=== PATIENT | female | born 1965 | race Caucasian/White ===

== ENCOUNTER 2021-12-16 02:13 | Outpatient (CLI) | payer OTHER, SELFPAY ==
--- OUTSIDE RECORDS SUMMARY | 2021-12-16 02:15 | XMS_ITS | Encounter Summary ---
:1965 Author Organization [facility] [place] [address] Care Team Providers Name Role Phone Unknown Primary Care Provider Unavailable Reason for Visit Reason Comments Follow-up Encounter Details Date Type Department Care Team Description 09/04/2011 Office Visit [facility] Joaquin Paz, Atypical lymphocytosis [address] [facility] Davy VELAZQUEZ (Primary Dx) [address] [address] [place], [place] [phone] [id number] Social History Tobacco Use Types Packs/Day Years Used Date Never Smoker Sex Assigned at Date Recorded Not on file documented as of this encounter Last Filed Vital Signs Vital Sign Reading Time Taken Comments Blood Pressure 110/66 09/04/2011 1:09 PM EDT Pulse 77 09/04/2011 1:09 PM EDT Temperature 36.4 ??C (97.5 ??F) 09/04/2011 1:09 PM EDT Respiratory Rate 14 09/04/2011 1:09 PM EDT Oxygen Saturation 98% 09/04/2011 1:09 PM EDT Inhaled Oxygen Concentration - - Weight 51.8 kg (114 lb 3.2 oz) 09/04/2011 1:09 PM EDT Height 148.6 cm (4' 10.5) 09/04/2011 1:09 PM EDT Body Mass Index 23.46 09/04/2011 1:09 PM EDT documented in this encounter Progress Notes Joaquin Paz MD - 09/04/2011 1:29 PM EDT Diagnosis: A few atypical lymphocytes seen on peripheral smear. Patient also with occasional slight increase inbilirubin raising possibility of Gilbert's syndrome Subjective: Savanna comes in today for medical oncology and hematology consultation regarding some subtle finding she's had on blood testing. She has had a slightly low white count ranging between 3.5 and 4.5 over the past couple years with a very subtle macrocytosis. More recently however a notation was made of some atypical lymphocytes. Additionally it is been noticed on occasion that her bilirubin would be slightly increased although it was also normal on occasion. All of her other liver testing however was completely normal. In reviewing her laboratory her most recent CBC done last month showed a white count of 4.0 hemoglobin 13.2 and platelet count of 178 differential showed 42% segs 0% bands 29% lymphocytes with 7% atypical lymphs noted. Her mean cell volume on this sample was slightly increased at 102.8.CMP showed a bilirubin of 1.7 with all other liver tests normal. Previously the patient has had a more extensive liver panel which is also normal except for a load GGTP. B12 was done and was normal at 404 folate of greater than 20.additionally the patient had a negative serum protein electrophoresis and iron levels B12 and folate were all normal. Reticulocyte count was low at 1.1 and thyroid studies were normal. The patient feels well with no symptoms or problems. 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 Her is clinical genetics laboratory chief here in [facility]. Family history is negative for any kind of blood disorder or cancer. She does have a identical twins sister and believes she may have the same laboratory problems. Review of Systems Constitutional: Negative for fever, chills, activity change, fatigue and unexpected weight change. HENT: Negative for sore throat, mouth sores and trouble swallowing. Eyes: Negative. Respiratory: Negative for cough, shortness of breath and wheezing. Cardiovascular: Negative for chest pain, palpitations and leg swelling. Gastrointestinal: Negative for nausea, vomiting, abdominal pain, diarrhea, constipation and abdominal distention. Genitourinary: Negative for dysuria and difficulty urinating. Musculoskeletal: Negative. Skin: Negative. Neurological: Negative. Hematological: Negative for adenopathy. Head: Normocephalic, without obvious abnormality, atraumatic Eyes: PERRL, conjunctiva/corneas clear, EOM's intact, fundi benign, both eyes Ears: Normal TM's and external ear canals, both ears Nose: Nares normal, septum midline, mucosa normal, no drainage or sinus tenderness Throat: Lips, mucosa, and tongue normal; teeth and gums normal Neck: Supple, symmetrical, trachea midline, no adenopathy, thyroid: not enlarged, symmetric, no tenderness/mass/nodules, no carotid bruit or JVD Back: Symmetric, no curvature, ROM normal, no CVA tenderness Lungs: Clear to auscultation bilaterally, respirations unlabored Chest Wall: No tenderness or deformity Heart: Regular rate and rhythm, S1, S2 normal, no murmur, rub or gallop Abdomen: Soft, non-tender, bowel sounds active all four quadrants, no masses, no organomegaly Extremities: Extremities normal, atraumatic, no cyanosis or edema Pulses: 2+ and symmetric Skin: Skin color, texture, turgor normal, no rashes or lesions Lymph nodes: Cervical, supraclavicular, and axillary nodes normal Neurologic: Normal Assessment/Plan: And has some subtle nonspecific findings on her laboratory testing. As far as the increased bilirubin goes I do think she may have Gilbert's syndrome as it has been up a time subtly and down other times. That coupled with the fact that she does not have any other liver abnormalities makes this a likely diagnosis. I was happy to see that we have ruled out the possibility of an underlying hemolytic anemia which would possibly increased bilirubin and a mean cell volume slightly by checking a reticulocyte count. With it in the normal range there is no chance that she is having hemolysis as an etiology. As far as her CBCs ago she does have a slight increase in mean cell volume which is not explained bymedication or any deficiencies. I don't believe there are any other studies however that could be done to help distinguish a reason for this. Since some atypical lymphocytes were seen on peripheral smear would seem reasonable to try and see if these are pathologic. A flow cytometry should help sort this out. If she does not have a clonal abnormality then I think no further evaluation would be required. As always 1 would like to speculate that this could be post viral. With the patient however being asymptomatic at this point one would simply continue to follow her. We've went ahead and ordered a flow cytometry today and we'll see her back following that. No further recommendations are made other than routine followup at this time. documented in this encounter Plan of Treatment Not on filedocumented as of this encounter Visit Diagnoses Diagnosis Atypical lymphocytosis - Primary Lymphocytosis (symptomatic) documented in this encounter Care Teams Conveyor Monitor Relationship Specialty Start Date End Date Unknown PCP - General 09/04/11 08/29/12 None documented as of this encounter
--- OUTSIDE RECORDS SUMMARY | 2021-12-16 02:15 | XMS_ITS | Encounter Summary ---
:1965 Author Organization [facility] Address [address] [place] [address] Care Team Providers Name Role Phone Unavailable Primary Care Provider Unavailable Encounter Details Date Type Department Care Team Description 06/04/2007 Results Only [facility] - John Chance MD conversion [address] [place] [address] Social History Tobacco Use Types Packs/Day Years Used Date Never Assessed Sex Assigned at Date Recorded Female 04/04/2021 10:49 EST documented as of this encounter Plan of Treatment Not on filedocumented as of this encounter Procedures Procedure Name Priority Date/Time Associated Comments Diagnosis HPV DETECTION, HIGH Routine 06/04/2007 8:29 Resul ts for this RISK TYPES EDT procedure are i n the results section. CYTOPATHOLOGY Routine 06/04/2007 0:00 Results for this EDT procedure are i n the results section. documented in this encounter Results HUMAN PAPILLOMA VIRUS DNA TEST (06/04/2007 8:29 EDT) Specimen Description Cervix, ThinPrep [facility] vial Result Negative for HPV [facility] types 16, 18, 31, 33, 35, 39, 45, 51, 52, 56, 58, 59, and 68. Report Status Final [facility] [id number] Specimen Performing Organization Address City/State/ZIP Code Phon e Number [facility] [address] [place] [address] SERVICES [facility] [address] [place] [address] CYTOPATHOLOGY (06/04/2007 0:00 EDT) Pathology Report: CYTOPATHOLOGY REPORT [facility] Reports generated via electronic interface contain zara ginal data; however they are lacking the format of the original re port. Caution should be taken when reading/interpreting unfo rmatted reports. Name: ? SAVANNA BAL ? Accession #: ? [id number] : ? 1965 (Age: 42) ??F ?Collect Date: ? 03/2007 Location: ? [facility] ? Receive Date : ? 06/06/2007 Provider: ?JOHN BERNARD MD Copy to: ? Specimen/Source: ? ThinPrep Pap Test, Cervix/Endocervix, processed on [employer] ThinPrep Imaging System, with manual evaluation Last Menstrual Period: ? 05/29/07 Other: ? HPVDX - HPV testing requested regardless of diag nosis on current ThinPrep Pap test. ? SPECIMEN ADEQUACY ? Satisfactory for Evaluation - transformation zone component present GENERAL CATEGORIZATION ? Other, see interpretation INTERPRETATION ? Endometrial cells present in a woman equal to o r greater than age 40. Negative for Intraepithelial Lesion. EDUCATIONAL NOTES/RECOMMENDATIONS ? Benign appearing endometrial cells on Pap tests are usually a normal finding in women with regular menstrual cycles, especially if the Pap test was collected during the first half of the menstrual cycle . There is data showing that e ndometrial cells on Pap tests may be associated with endometrial/uterine abnormal ities in post menopausal women or in perimenopausal women with abnormal bleeding. There is limited data on the significance of calli ign endometrial cells in post menopausal women on HRT. ??Clinical correlation is rec ommended. Note: ??The Pap test is not an accurate test for the screening of endometrial lesions and should not be used as a follow up in patie nts with clinical suspicion of endometrial pathology. ? Document reviewed and electronically signed by: ? CIRA Reis(ASCP) ? Report Date: ??06/12/2007 08:16 End of Report Specimen Performing Organization Address City/State/ZIP Code Phon e Number [facility] [address] [place] [address] SERVICES [facility] [address] [place] [address] documented in this encounter Visit Diagnoses Not on filedocumented in this encounter
--- OUTSIDE RECORDS SUMMARY | 2021-12-16 02:15 | XMS_ITS | Encounter Summary ---
:1965 Author Organization [facility] Address [address] [place] [id number] Care Team Providers Name Role Phone Unavailable Primary Care Provider Unavailable Encounter Details Date Type Department Care Team Description 11/23/2010 Results Only [facility] Munir Bernard am, MD Services - Liane All en [address] [address] Social History Tobacco Use Types Packs/Day Years Used Date Never Assessed Sex Assigned at Date Recorded Female 04/04/2021 10:49 EST documented as of this encounter Plan of Treatment Not on filedocumented as of this encounter Procedures Procedure Name Priority Date/Time Associated Diagnosis Comme nts PAP TEST- RESULT Routine 11/24/2010 0:00 EDT Resu lts for this ONLY procedure are i n the results section. documented in this encounter Results PAP TEST- RESULT ONLY (11/24/2010 0:00 EDT) Pathology Report: CYTOPATHOLOGY REPORT ? [facility] ? LAB Reports generated via [employer] interface contain original data; ? however they are lacking the format of the original report. ? Caution should be taken when reading/interpreting unformatted reports. ? Name: ? VALERIANO BRYANNA Pio L ? Accession #: ? [id number] ? : ? 1965 (Age: 45) ??F ?Collect Date: ? 11/24/2010 ? Location: ? [facility] ? R eceive Date: ? 11/25/2010 ? Provider: ENEIDA B BERNARD MD ? Copy to: ? Final Report ? SPECIMEN ADEQUACY ? Satisfactory for Eval uation ? - transformation zone compon ent present ? GENERAL CATEGORIZATION ? Negative for Intraepi thelial Lesion or Malignancy ? Other: Additional clinical i nformation: previous paps WNL 3/, 06/10 ? Specimen/Source: ??Pap Test, Cervix/Endocervix, ThinPrep Imaging System with ? manual evaluation ? Document reviewed and electr onically signed by: ? Brittney Deysi, CT( CP) ? Report ??Date: 12/01/ 2010 10:54 ? HPV with Pap Test ? Date Ordered: ? 0 12/01/2010 ? Status: ?? Signed Out ?Date Complete: ? 12/05/2010 ? By: ??System Interface ? Date Reported: ? 12/05/2010 ? Interpretation ? RESULT: Negative for HPV typ es 16, 18, 31, 33, 35, 39, 45, 51, 52, ? 56, 58, 59, and 68. ? Comments ? Document reviewed and electr onically signed by: ? System Interface ? Report date: 12/06/19 11 ? By the signature above, the attending physician certifies that he/she has ? personally conducted a gross and/or microscopic examination of the described ? specimens and rendered or co nfirmed the above diagnosis. ? End of Report ? Specimen Performing Organization Address City/State/ZIP Code Phon e Number [facility] [address] [place] [address] SERVICES [facility] [address] [place] [address] documented in this encounter Visit Diagnoses Not on filedocumented in this encounter
--- OUTSIDE RECORDS SUMMARY | 2021-12-16 02:15 | XMS_ITS | Encounter Summary ---
:[address] [facility] Address [address] [place] [address] Care Team Providers Name Role Phone Shy Matamoros MD Primary Care Provider Encounter Details Date Type Department Care Team Description 03/16/2021 Lab Requisition [facility] Shahbaz Fitzgerald MD Encounter for other Pathology & [address] MEDICAL [facility] Medicine [facility] [address] Osorio [address] [address] [address] [facility] [phone] [place] [address] (Work) [phone] Social History Tobacco Use Types Packs/Day Years Used Date Never Assessed Sex Assigned at Date Recorded Female 04/04/2021 10:49 EST documented as of this encounter Plan of Treatment Not on filedocumented as of this encounter Procedures Procedure Name Priority Date/Time Associated Diagnosis Comme nts SURGICAL PATHOLOGY Today 03/16/2021 11:28 Resul ts for this EST procedure are i n the results section. documented in this encounter Results SURGICAL PATHOLOGY (03/16/2021 11:28 EST) Note to Patient The following [facility] pathology results CENTER have been interpreted LABORATORY by your pathologist SERVICES and may be available to you before your health provider has had the opportunity to review them. Please allow time for your provider to receive these results and explore management options, if applicable. Final Diagnosis A. ENDOMETRIUM, POLYP, POLYPECTOMY: [facility] - Features suggestive of benign endometrial polyp. CENTER LABORATORY B. ENDOMETRIUM, CURETTAGE: SERVICES - Fragments of benign endometrial glands and stroma. C. OVARY AND FALLOPIAN TUBE, LEFT, SALPINGO-OOPHORECTO MY: - Ovary with leiomyoma, 1.3 cm in greatest dimension. - Fallopian tube with no specific pathologic features. Attestation There was significant [facility] Electr onically resident/fellow CENTER signed by Maulik castellano, involvement in the LABORATORY Jackelyn Yoo MD on diagnostic evaluation SERVICES 022 at 1105 of this case. By the signature below, the attending physician certifies that they have personally conducted a gross and/or microscopic examination of the described specimens and rendered or confirmed the above diagnosis. Clinical History Thickened [facility] endometrium, [facility] endometrial cavity, L LABORATORY ovarian cyst SERVICES Gross Description A. [facility] Received in formalin donato d with proper patient identification (initials B, A) and polyp are several fragments of rubbery rodriguez purple tissue measuring 3.0 x 2.0 x 0.7 cm in aggregate. Tissue is entirely submitted as A1 and A2. CENTER LABORATORY B. SERVICES Received in formalin donato d with proper patient identification (initials B, A) and endometrium curettings is an aggregate of dark purple rubbery with admixed mucous (0.5 x 0.5 x 0.3 cm). Entirely submitted in B1. C. Received fresh labelled with proper patient identification (initials B, A) and left ovary and tube is a solid ovarian tumor (3.8 g, 1.3 cm in diameter) with attached fallopian tube (4.0 cm in length x 0.6 cm in diameter). The ovarian tumor is intact and has a smooth outer surface without excrescences. Sectioning reveals a well-circumscribed nodular mass with rodriguez- white and whorled cut surface. Residual normal ovarian tissue is identified. The serosa of the fallopian tube is smooth and rodriguez purple and the cut surface is rodriguez-white an unremarkable with a pinpoint lumen throughout. Drag Out Man sections are submitted as follows: BLOCK DOWLING C1-C3- entire ovarian mass C4- uninvolved ovary with fallopian tube cross-section C5- possible fimbriated end of fallopian tube, perpend icular Janel Porras MD 03/17/2021 15:54 Resident/Fellow: Janel Porras MD [facility] SERVICES Performing Lab [facility] Scanned Images [facility] SERVICES Specimen Tissue - Fallopian tube and ovary (combi zayda site) (body structure) Tissue specimen (specimen) - Entire endo metrium (body structure) Tissue specimen (specimen) - Fallopian t ube and ovary (combined site) (body structure) Performing Organization Address City/State/ZIP Code Phon e Number [facility] [address] [place] [address] SERVICES documented in this encounter Visit Diagnoses Diagnosis Encounter for other general examination documented in this encounter Care Teams Statuary Painter Relationship Specialty Start Date End Date Shy Matamoros MD PCP - General 09/05/[address] [place] [address] documented as of this encounter
--- OUTSIDE RECORDS SUMMARY | 2021-12-16 02:15 | XMS_ITS | Encounter Summary ---
:1965 Author Organization [facility] [place] [address] Care Team Providers Name Role Phone Jeremias Gates MD Primary Care Provider Reason for Visit Reason Comments Follow-up Encounter Details Date Type Department Care Team Description 10/14/2012 Office Visit Hematology and Sebastian Gross al lymphocytosis (Primary Dx); Oncology at [facility] MD Fredo Leukopenia; [facility] [address] [place], [place] HEMATOLOGY/ONCOLOGY [id number] DEPT. [phone] [place], [place] [address] (Wo rk) Social History Tobacco Use Types Packs/Day Years Used Date Never Smoker Sex Assigned at Date Recorded Not on file documented as of this encounter Last Filed Vital Signs Vital Sign Reading Time Taken Comments Blood Pressure 126/72 10/14/2012 9:34 AM EDT Pulse 70 10/14/2012 9:34 AM EDT Temperature 36.8 ??C (98.2 ??F) 10/14/2012 9:34 AM EDT Respiratory Rate 18 10/14/2012 9:34 AM EDT Oxygen Saturation 100% 10/14/2012 9:34 AM EDT Inhaled Oxygen Concentration - - Weight 52.7 kg (116 lb 2.9 oz) 10/14/2012 9:34 AM EDT Height 147.6 cm (4' 10.11) 10/14/2012 9:34 AM EDT Body Mass Index 24.19 10/14/2012 9:34 AM EDT documented in this encounter Progress Notes Sebastian Gross MD - 10/14/2012 11:00 AM EDT HEMATOLOGY/BMT CONSULTATION VISIT NOTE CHIEF COMPLAINT: Romelia Hussein is a 47 y.o. year old female referred by JEREMIAS GATES MD for evaluation of . DATA REVIEW (From JEREMIAS GATES MD) 07/09/12 CBC - 4.0/13.3/178 MCV 102.8 7% arypical lymphs, individual absolute counts all WNL 08/13/12 CBC - 4.0/13.7/172 MCV 104 0% atypical lymphs, individual absolute counts all WNL 08/30/12 PB Flow cytometry (from [facility]) Abberrant T-cell population...18% of lymphocytes...CD6, CD7, CD2, CD5 POS and CD3 NEG HISTORY OF PRESENT ILLNESS Romelia Hussein dates the onset of illness to 4 years ago when Romelia went to her PCP for a wart, while there he suggested that she have a routine CBC. This showed a low WBC. At times she has had a mildanmeia that comes and goes. She thinks she had tests for iron and B12 that were normal. I never getsick, she says. Hasn't needed antibiotics for ~10 years - the last time was after the of one of her children. She thinks her sister has a similar low WBC that is chronic and has never been treated. No enlarged of tender lymph nodes. No F/C/S. Weight is stable. Energy is good - able to do all she wants to do and is quite active. Has 3 children 15, 10 and 13. 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 No issue in keeping up with her children. Has never worked with chemicals or radiation or been exposed to them. REVIEW OF SYSTEMS Constitutional --Energy level: good --Pain: none --Fevers/chills/sweats: No --Unexpected weight loss or gain: No Eyes - No change in vision Ears, nose, throat - No change hearing, no oral or throat pain or thrush Cardiovascular --SOB: No --TROY: No --chest pain: No Respiratory --Cough: No --SOB, TROY: as above Gastrointestinal --Appetite: good --Nausea/vomiting/diarrhea/constipation: No Genitourinary --Dysuria or hematuria: No Musculoskeletal --Muscle pain or weakness: No --Joint pain or swelling: No Immune System --Recent infections: No Hematology/Lymph --Bruising/bleeding/melena: No --Enlarged nodes or other masses: No Skin --Rashes or petechiae: No Other ROS: All negative PROBLEM LIST Patient Active Problem List Diagnosis Date Noted ??? Atypical lymphocytosis ??? Gilbert syndrome MEDICATIONS Prior to Admission medications Medication Sig Start Date End Date Taking? Authorizing Provider ibuprofen (ADVIL;MOTRIN) 800 mg tablet Take 200 mg by mouth every 6 hours as needed. Indications: Osteoarthritis Yes Provider, Historical, ALLERGIES/ADR Allergies Allergen Reactions ??? Percocet (Oxycodone-Acetaminophen) Palpitations ??? Tetracycline Nausea Only SOCIAL HISTORY History Substance Use Topics ??? Smoking status: Never Smoker ??? Smokeless tobacco: Not on file ??? Alcohol Use: ETOH - 1 drink or less per week. 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 No exposures to chemicals or radiation FAMILY HISTORY Father - at 47 of [place] Mother - at 70 of DM complications 4 brothers - one of DM complications, one with Hep C of drug abuse, another with DM 1 sister - as above PHYSICAL EXAM VITAL SIGNS: Blood pressure 126/72, pulse 70, temperature 36.8 ??C (98.2 ??F), temperature source Oral, resp. rate 18, height 147.6 cm (4' 10.11), weight 52.7 kg (116 lb 2.9 oz), SpO2 100.00%. GENERAL: Romelia Hussein is a well-appearing 47 y.o. year old female in no acute distress. ENT: Sinuses non-tender. Oropharynx clear. No masses. No thrush. ENDOCRINE: No thyromegaly palpated. CARDIOVASCULAR: Heart with regular rate and rhythm without S3,S4 or murmurs. No cyanosis or peripheral edema. PULMONARY: Lungs are clear to auscultation without rales, rhonchi or wheezing. GASTROINTESTINAL: Abdomen soft and non-tender without palpable masses or hepatosplenomegaly. MUSCULOSKELETAL: Neck supple with full ROM. No spine or CVA tenderness. SKIN: No rashes, bruises or petechiae. LYMPH: No abnormal lymphadenopathy. NEUROLOGICAL: Alert and oriented to person, place and time. LABORATORY Recent Results (from the past 72 hour(s)) CBC (WITH DIFF) Component Value Range WBC 3.4 (*) 4.0 - 10.0 x10(3)/mcL RBC 4.03 3.93 - 5.22 x10(6)/mcL Hemoglobin 13.6 11.2 - 15.7 gm/dL Hematocrit 41.6 34.0 - 45.0 % MCV 103.2 (*) 79.0 - 94.0 fL MCH 33.7 (*) 26.6 - 32.2 pg MCHC 32.7 32.0 - 36.5 gm/dL Platelets 212 145 - 370 x10(3)/mcL RDWSD 50.4 (*) 35.0 - 46.0 fL RDWCV 13.3 10.9 - 14.4 % MPV 11.1 9.0 - 12.0 fL COMPREHENSIVE METABOLIC PANEL (NON-FASTING) Component Value Range Glucose Lvl 95 60 - 199 mg/dL BUN 18 8 - 18 mg/dL Creatinine 0.64 (*) 0.70 - 1.20 mg/dL Sodium 138 135 - 145 mmol/L Potassium 3.7 3.5 - 5.0 mmol/L Chloride 101 98 - 107 mmol/L CO2 25 22 - 31 mmol/L Anion Gap 12 5 - 15 mmol/L Calcium 9.5 8.5 - 10.5 mg/dL Total Protein 7.5 6.4 - 8.3 gm/dL Albumin 4.4 3.2 - 5.2 gm/dL AST 20 0 - 30 unit/L ALT 20 0 - 30 unit/L Alk Phos 91 40 - 104 unit/L Total Bilirubin 1.2 0.2 - 1.3 mg/dL Bili, Direct 0.2 0.0 - 0.3 mg/dL Estimated GFR >60 >=60 LACTATE DEHYDROGENASE Component Value Range LDH 167 110 - 220 unit/L IMMUNOGLOBULINS, QUANTITATIVE Component Value Range IgG 1035 700 - 1600 mg/dL IgA 275 70 - 400 mg/dL IgM 174 40 - 230 mg/dL PROTEIN ELECTROPHORESIS, SERUM Component Value Range Total Prot Elec 7.3 6.1 - 8.0 gm/dL Albumin Elect 4.30 3.60 - 6.00 gm/dL Alpha1-Globulin 0.18 0.10 - 0.30 gm/dL Alpha2-Globulin 0.83 0.40 - 0.90 gm/dL Beta Globulin 0.93 0.50 - 1.00 gm/dL Gamma Globulin 1.06 0.50 - 1.30 gm/dL M1 Band None Detected None Detected gm/dL Scan See Note IMMUNOPHENOTYPING FLOW CYTOMETRY Component Value Range Type of Specimen blood Panel Requested LGL Panel Immunophenotyping Flow See Comment FERRITIN Component Value Range Ferritin 20 15 - 150 ng/mL SEDIMENTATION RATE Component Value Range Sed Rate 16 0 - 20 mm/hr IRON AND TIBC Component Value Range Iron 162 (*) 30 - 150 mcg/dL TIBC 433 250 - 450 mcg/dL Iron Saturation 37 20 - 50 % DIFFERENTIAL, AUTOMATED Component Value Range Neutrophils % 47.5 34.0 - 71.0 % Neutr Abs (ANC) 1.61 1.50 - 6.30 x10(3)/mcL Lymphocytes % 39.5 19.0 - 53.0 % Lymphocytes Abs 1.3 1.0 - 3.6 x10(3)/mcL Monocytes % 10.6 4.0 - 13.0 % Monocyte Abs 0.4 0.2 - 1.0 x10(3)/mcL Eosinophils % 1.8 0.0 - 7.0 % Eosinophils Abs 0.1 0.0 - 0.5 x10(3)/mcL Basophils % 0.6 0.0 - 2.0 % Basophils Abs 0.0 0.0 - 0.2 x10(3)/mcL Immature Gran % 0.00 0.00 - 0.66 % Anayeli Gran Abs 0.00 0.00 - 0.05 x10(3)/mcL RADIOLOGY - None ASSESSMENT & PLANS 1. Atypical lymphocytes - Flow cytometry results from [facility] suggest the possibility of a lymphoproliferative disorder but are non-diagnostic. Romelia has no symptoms or physical findings to suggest any underlying hematologic disorder including a MPD. In fact she seems to be a very healthy, active person. After discussion we agreed to begin with routine lab testing including anemia evaluation because she felt that she had had anemia in the recent past, as well as repeating the flow cytometry. It could be that the atypical signature previously noted was due to a viral infection. In support of this would be the fact that the percentage of abnormal lymphocytes in her blood declined from 7% to 0%from July to August. I will call Romelia with the results of her testing as soon as they are completed. Preferred contact number: [phone] 10/31/12 ADDENDUM Summary of peripheral blood flow cytometry: In summary, although there is a slightly expanded NK cell population, there are no immmunophenotypic T-cell abnormalities identified. Transient increases in peripheral blood NK cells may be observed in a range of reactive conditions including infections, autoimmune disorders and malignancies. In the absence of clinical evidence for an aggressive NK neoplasm, persistent (>6 months) elevations of NK cells may be consistent with chronic NK lymphocytosis, a generally indolent disorder that may be associated with cytopenias (Franco et al., Natural killer cells and the syndrome of chronic natural killer cell lymphocytosis. Leukemia and Lymphoma 2001;41:277-284). In this patient's case, however, the proportion of NK cells and absolute NK cell count (22% of lymphocytes; 0.3 x 10e9 cells/L, respectively) do not reach the threshold for a diagnosis of chronic NK lymphocytosis (40% of lymphocytes; 0.6 x10e9 cells/L). Correlation with the results of clinical and laboratory data and follow up flow cytometry evaluation after a relevant interval may help place the finding of this expanded NK cell population into the appropriate context. I reviewed the above flow results with Dr. Alexander, the hematopathologist for this case. The above analysis did not find any evidence of of the previously observed T-cell abnormalities seen in the sample sent to [facility] suggesting that this was a transient finding and not of any long-term signi ficance. As noted above there was a slight increase in NK cells in the current sample, but this small increase is non-diagnostic and also of questionable significance given that Romelia feels entirely well. Recommendation At this point I would not recommend any further hematologic evaluation and only observation of Romelia's blood counts (say every 6 months or so). Should she develop significant cytopenia's in the future or develop worrisome symptoms, I would be glad to see her any time. I called Romelia and reviewed her results and my recommendations with her. Sebastian Gross M.D. commissary representative & Pharmacology Section of Hematology/Oncology [facility] documented in this encounter Plan of Treatment Not on filedocumented as of this encounter Procedures Procedure Name Priority Date/Time Associated Comments Diagnosis IMMUNOPHENOTYPING FLOW STAT 10/14/2012 12:03 Atypical R esults for this CYTOMETRY PM EDT lymphocytosis procedure are in Leukopenia the results Anemia section. IMMUNOGLOBULINS, STAT 10/14/2012 12:03 Atypical Results for this QUANTITATIVE PM EDT lymphocytosis procedure are in Leukopenia the results Anemia section. FLOW CYTOMETRY REPORT Routine 10/14/2012 12:03 Re sults for this PM EDT procedure are i n the results section. DIFFERENTIAL, AUTOMATED Routine 10/14/2012 12:03 Results for this PM EDT procedure are i n the results section. IRON AND TIBC Routine 10/14/2012 12:03 Atypical Results fo r this PM EDT lymphocytosis procedure are in Leukopenia the results Anemia section. SEDIMENTATION RATE STAT 10/14/2012 12:03 Atypical Resul ts for this PM EDT lymphocytosis procedure are in Leukopenia the results Anemia section. CBC (WITH DIFF) Routine 10/14/2012 12:03 Atypical Results for this PM EDT lymphocytosis procedure are in Leukopenia the results Anemia section. PROTEIN ELECTROPHORESIS, Routine 10/14/2012 12:03 Atypical Results for this SERUM PM EDT lymphocytosis procedure are in Leukopenia the results Anemia section. LACTATE DEHYDROGENASE Routine 10/14/2012 12:03 Atypical Re sults for this PM EDT lymphocytosis procedure are in Leukopenia the results Anemia section. FERRITIN Routine 10/14/2012 12:03 Atypical Results for this PM EDT lymphocytosis procedure are in Leukopenia the results Anemia section. COMPREHENSIVE METABOLIC Routine 10/14/2012 12:03 Atypical Results for this PANEL (NON-FASTING) PM EDT lymphocytosi s procedure are in Leukopenia the results Anemia section. documented in this encounter Results Flow Cytometry Report (10/14/2012 12:03 PM EDT) Component Value Ref Test Analysis Performed At [facility] Range Method Time Signature Flow CERNER Cytometry ? [facility] Report ? Provider: ?? SEBASTIAN GROSS Pt. Name: ?? ROMELIA BUNCH ?H ? Acc #: ?[id number] ? Pt. ? Col Date: ?? 10/14/2012 ? /Sex: ?1 04/18/1964,(47 ? years),Female ? Rec Date: ?? 10/14/2012 ? LOC: ?3K ? ANALYTICAL CELL PATHOLOGY ? ---Clinical Information--- ? 47 yo woman with leuk openia and apparently abnormal peripheral blood flow ? cytometry performed previously. ? ---Preparation--- ? FCM: [id number] ? -[id number] ? Peripheral Blood ? ---Markers--- ? Cells for immunophenotypic analys is were derived from peripheral blood. ? CD45 vs side scatter gating was utilized to identify a lymphoid analysis ? region that comprises approximately 32% of all cells. ? The following markers were assese d: CD2, CD3, CD4, CD5, CD7, CD8, CD16, ? CD19, CD45, CD56,and CD57. ? ---Interpretation--- ? DIAGNOSIS: SMALL EXPA NDED CD3-CD56+ NK CELL POPULATION WITHOUT AN ABNORMAL ? T-CELL POPULATION ? IDENTIFIED (SEE COMMENT) ? 10/14/12 ? 10/18/12 Verified by: ? Benjamin VELAZQUEZ, Bing Degroot ? Hematopatholog ist ? (Electronic Si gnature) ? ---Comment--- ? The majority of lymph ocytes in this peripheral blood specimen are CD3+ T- ? cells (66% of lymphoc ytes; 21% of total cells) with an appropriate mixture ? of mature CD4+ and CD 8+ forms (CD4:CD8 ratio = 1.5). ??There is no aberrant ? antigen loss or expression on T-cells and no significant population of ? CD4+CD8+ (double pos itive) cells. In particular, we identify no abnormal ? CD3- CD5+ CD7+ T-cell population as was described i n a previous flow ? cytometry report from [facility] (#[id number], under scanned ? docs in eDH). There i s a slightly expanded population of CD3-CD56+ NK cells ? constituting 22% of lymphocytes ( 7% of total cells). These NK cells are ? appropriately CD2+, CD5-, CD7+ and show a range of CD8, CD16 and CD57 ? expression without aberrant antig en expression or loss. CD3+CD57+ T-LGL ? cells are not increased (15% of l ymphocytes; 7% of total cells), and B- ? cells account for 11% of lymphocytes (4% of total lily ls). ? [facility] ? Provider: ?? SEBASTIAN GROSS Pt. Name: ?? ROMELIA BUNCH ?H ? Acc #: ?[id number] ? Pt. ? Col Date: ?? 10/14/2012 ? /Sex: ?1 04/18/1964,(47 ? years),Female ? Rec Date: ?? 10/14/2012 ? LOC: ?3K ? ANALYTICAL CELL PATHOLOGY ? In summary, although there is a slightly expanded NK cell population, there ? are no immmunophenotypic T-cell abnormalities i dentified. ??Transient ? increases in peripheral blood NK cells may be obser casper in a range of ? reactive conditions including infections, autoimmune disorders and ? malignancies. In the absence of clinical evidence for an aggressive ??NK ? neoplasm, persistent (>6 months) elevations of NK cells may be consistent ? with chronic NK lymph ocytosis, a generally indolent disorder that may be ? associated with cytopenias (Rhonda ronquillo et al., Natural killer cells and the ? syndrome of chronic natural killer cell lymphocytosis . Leukemia and ? Lymphoma 2001;41:277- 284). In this patient's case, however, the proportion ? of NK cells and absolute NK cell count (2 2% of lymphocytes; 0.3 x 10e9 ? cells/L, respectively) do not reach the threshold f or a diagnosis of ? chronic NK lymphocytosis (40% of lymphocytes; 0.6 x 1 0e9 cells/L). ? Correlation with the results of clinical and laboratory data and follow up ? flow cytometry evaluation after a relevan t interval may help place the ? finding of this expan ded NK cell population into the appropriate context. ? Flow analysis is an ancillary study. A definite diagn osis requires ? correlation with the morphologic features of this process and if necessary, ? correlation with othe r ancillary studies like immunohistochemistry, enzyme ? cytochemistry and/or cyto/molecular genetics. ? This test was develop ed and its performance characteristics determined by ? the Clinical Flow Cytometry Laboratory at [facility]. It has not been cleared or approved by the U.S. Food and Drug ? Administration. ??The FDA has determined that such clearance or approval is ? not necessary. ??This test is used for clinical purposes. ??It should not be ? regarded as investiga tional or for research. ??This laboratory is certified ? under the Clinical La boratory Improvement Act of 1988 (CLIA) as qualified ? to perform high complexity clinical laboratory testin g. Specimen (Source) Anatomical Collection Method Collection Time Re ceived Time Location / / Volume Laterality 10/14/2012 12:03 PM EDT Sebastian Gross MD PATHOLOGY/CYTOLOGY ORDERABLE S Performing Organization Address City/State/[place] [address] CERNER MILLENNIUM Differential, Automated (10/14/2012 12:03 PM EDT) P athologist Signature Neutrophils % 47.5 34.0 - CERNER 71.0 % MILLENNIUM Neutr Abs (ANC) 1.61 1.50 - CERNER 6.30 MILLENNIUM x10(3)/mcL Lymphocytes % 39.5 19.0 - CERNER 53.0 % MILLENNIUM Lymphocytes Abs 1.3 1.0 - 3.6 CERNER x10(3)/mcL MILLENNIUM Monocytes % 10.6 4.0 - 13.0 CERNER % MILLENNIUM Monocyte Abs 0.4 0.2 - 1.0 CERNER x10(3)/mcL MILLENNIUM Eosinophils % 1.8 0.0 - 7.0 CERNER % MILLENNIUM Eosinophils Abs 0.1 0.0 - 0.5 CERNER x10(3)/mcL MILLENNIUM Basophils % 0.6 0.0 - 2.0 CERNER % MILLENNIUM Basophils Abs 0.0 0.0 - 0.2 CERNER x10(3)/mcL MILLENNIUM Immature Gran % 0.00 0.00 - CERNER 0.66 % MILLENNIUM Comment: Immature granulocytes(IG's)percentage an d absolute count will include metamyelocytes, myelocytes, and promyelo cytes. Blood smears from CBCs yielding IG's will be scanned manually for concor dance. If this scan disagrees with the automated IG or if promyelocytes are not ed, a manual differential will be performed. Anayeli Gran Abs 0.00 0.00 - 0.05 x10(3)/mcL CER NER MILLENNIUM Specimen Anatomical Collection Method Collection Time Receive d Time (Source) Location / / Volume Laterality Blood specimen 10/14/2012 12:03 3 (specimen) PM EDT 12:18 PM EDT Sebastian Gross MD HEMATOLOGY ORDERABLES Performing Organization Address City/[facility]/[place] [address] CERNER MILLENNIUM (ABNORMAL) Iron and TIBC (10/14/2012 12:03 PM EDT) Analysis Performed At Patho logist Time Signature Iron 162 (H) 30 - 150 CERNER mcg/dL MILLENNIUM TIBC 433 250 - 450 CERNER mcg/dL MILLENNIUM Iron Saturation 37 20 - 50 % CERNER MILLENNIUM Specimen Anatomical Collection Method Collection Time Receive d Time (Source) Location / / Volume Laterality Blood specimen 10/14/2012 12:03 3 (specimen) PM EDT 12:18 PM EDT Resulting Agency Comment Spec In Lab Sebastian Gross MD CHEMISTRY ORDERABLES Performing Organization Address City/State/ZIP Code Phon e Number [address] CERNER MILLENNIUM Sedimentation rate (10/14/2012 12:03 PM EDT) athologist Signature Sed Rate 16 0 - 20 CERNER mm/hr MILLENNIUM Specimen Anatomical Collection Method Collection Time Receive d Time (Source) Location / / Volume Laterality Blood specimen 10/14/2012 12:03 3 (specimen) PM EDT 12:18 PM EDT Resulting Agency Comment Spec In Lab Sebastian Gross MD HEMATOLOGY ORDERABLES Performing Organization Address City/[facility]/ZIP Code Phon e Number [address] CERNER MILLENNIUM Ferritin (10/14/2012 12:03 PM EDT) P athologist Signature Ferritin 20 15 - 150 CERNER ng/mL MILLENNIUM Comment: Pediatric reference ranges not verified at [facility], interpret with caution. Reference ranges for females greater juan n 50 years of age approach values for men, i.e., 30-400 ng/mL. Specimen Anatomical Collection Method Collection Time Receive d Time (Source) Location / / Volume Laterality Blood specimen 10/14/2012 12:03 3 (specimen) PM EDT 12:18 PM EDT Resulting Agency Comment Spec In Lab Sebastian Gross MD CHEMISTRY ORDERABLES Performing Organization Address [facility] Code Phon e Number [address] CERNER MILLENNIUM Immunophenotyping Flow Cytometry (10/14/2012 12:03 PM EDT) Component Value Ref Test Analysis Performed At [facility] [place] Range Method Time Signature Type of Specimen blood CERNER MILLENNIUM Panel Requested LGL Panel CERNER MILLENNIUM Immunophenotyping See DANYN Flow Comment MILLENNIUM Comment: When completed by the Pathologist, the F low Cytometry Report ([id number]) will display under the Hematopathology Repor ts result section in eD. Specimen Anatomical Collection Method Collection Time Receive d Time (Source) Location / / Volume Laterality Body fluid 10/14/2012 12:03 10/14/2012 specimen PM EDT 12:18 PM EDT (specimen) Resulting Agency Comment Spec In Lab Sebastian Gross MD HEMATOLOGY ORDERABLES Performing Organization Address City/[facility] Code Phon e Number [address] CERNER MILLENNIUM Protein Electrophoresis, serum (10/14/2012 12:03 PM EDT) [facility] Method Time Signature Total Prot 7.3 6.1 - 8.0 CERNER Elec gm/dL MILLENNIUM Albumin Elect 4.30 3.60 - 6.00 CERNER gm/dL MILLENNIUM Alpha1-Globul 0.18 0.10 - 0.30 CERNER in gm/dL MILLENNIUM Alpha2-Globul 0.83 0.40 - 0.90 CERNER in gm/dL MILLENNIUM Beta Globulin 0.93 0.50 - 1.00 CERNER gm/dL MILLENNIUM Gamma 1.06 0.50 - 1.30 CERNER Globulin gm/dL MILLENNIUM M1 Band None None CERNER Detected Detected MILLENNIUM gm/dL Scan See Note CERNER MILLENNIUM Comment: Please see scanned report in art Review under the [facility] Laboratory Heading. Specimen Anatomical Collection Method Collection Time Receive d Time (Source) Location / / Volume Laterality Blood specimen 10/14/2012 12:03 3 (specimen) PM EDT 12:18 PM EDT Narrative This result has an attachment that is no t available. Resulting Agency Comment Spec In Lab Sebastian Gross MD CHEMISTRY ORDERABLES Performing Organization Address City/[facility]/ZIP Code Phon e Number [address] CERNER MILLENNIUM Immunoglobulins, Quantitative (10/14/2012 12:03 PM EDT) athologist Signature IgG 1035 700 - 1600 CERNER mg/dL MILLENNIUM IgA 275 70 - 400 CERNER mg/dL MILLENNIUM IgM 174 40 - 230 CERNER mg/dL MILLENNIUM Specimen Anatomical Collection Method Collection Time Receive d Time (Source) Location / / Volume Laterality Blood specimen 10/14/2012 12:03 3 (specimen) PM EDT 12:18 PM EDT Resulting Agency Comment Spec In Lab Sebastian Gross MD CHEMISTRY ORDERABLES Performing Organization Address City/[facility]/ZIP Code Phon e Number [address] [facility] MILL[facility] Lactate Dehydrogenase (10/14/2012 12:03 PM EDT) athologist Signature LDH 167 110 - 220 CERNER unit/L MILLENNIUM Specimen Anatomical Collection Method Collection Time Receive d Time (Source) Location / / Volume Laterality Blood specimen 10/14/2012 12:03 3 (specimen) PM EDT 12:18 PM EDT Resulting Agency Comment Spec In Lab Sebastian Gross MD CHEMISTRY ORDERABLES Performing Organization Address City/[facility]/ZIP Code Phon e Number [address] CERNER MILLENNIUM (ABNORMAL) Comprehensive metabolic panel (non-fasting) (10/14/2012 12:03 PM EDT) P athologist Signature Glucose Lvl 95 60 - 199 CERNER mg/dL [facility] Comment: Diabetes: >=200 mg/dL plus symp toms BUN 18 8 - 18 mg/dL CERNER MILLENNIUM Creatinine 0.64 (L) 0.70 - 1.20 mg/dL CERNER MILL ENNIUM Comment: Please note that the pediatric reference intervals supplied above were not validated at [facility]. Results from pediatri c patients should be interpreted in conjunction to the patient's age, height and muscle mass. Sodium 138 135 - 145 mmol/L CERNER NANO NIUM Potassium 3.7 3.5 - 5.0 mmol/L CERNER NANO NIUM Comment: Please note: ??Patients with WBC >100,00 0 may have falsely elevated Potassium levels. ??For accurate Potassium quantif ication in these patients send serum separator tube (gold top) for subsequent determinations. ??Contact the Clinical Chemistry Laboratory if there are any qu estions. Chloride 101 98 - 107 mmol/L CERNER MILLENN IUM CO2 25 22 - 31 mmol/L CERNER MILLENNI UM Anion Gap 12 5 - 15 mmol/L CERNER MILLENNIU M Calcium 9.5 8.5 - 10.5 mg/dL CERNER NANO NIUM Total Protein 7.5 6.4 - 8.3 gm/dL CERNER MIL LENNIUM Albumin 4.4 3.2 - 5.2 gm/dL CERNER MILLENN IUM AST 20 0 - 30 unit/L CERNER MILLENNIU M ALT 20 0 - 30 unit/L CERNER MILLENNIU M Alk Phos 91 40 - 104 unit/L CERNER MILLENN IUM Total Bilirubin 1.2 0.2 - 1.3 mg/dL CERNER M ILLENNIUM Bili, Direct 0.2 0.0 - 0.3 mg/dL CERNER MILL ENNIUM Estimated GFR >60 >=60 CERNER MILLENNIU M Comment: This estimated GFR (eGFR) value was calc ulated using the MDRD equation which has been validated on patients between t he ages of 18 and 70. The MDRD should not be used to assess kidney function in patients < 18 years of age or in patients with extremes of body mass, or in patients with acute kidney failure. This value should be multiplied by 1.2 f or patients. For further information please copy and past e the following links into your internet browser. http://www.nkdep.nih.gov/lab-evaluation. shtml http://www.kidney.org/professionals/ Specimen Anatomical Collection Method Collection Time Receive d Time (Source) Location / / Volume Laterality Blood specimen 10/14/2012 12:03 3 (specimen) PM EDT 12:18 PM EDT Resulting Agency Comment Spec In Lab Sebastian Gross MD CHEMISTRY ORDERABLES Performing Organization Address City/[facility]/ZIP Code Phon e Number [address] CERNER MILLENNIUM (ABNORMAL) CBC (with Diff) (10/14/2012 12:03 PM EDT) P athologist Signature WBC 3.4 (L) 4.0 - 10.0 CERNER x10(3)/mcL MILLENNIUM RBC 4.03 3.93 - CERNER 5.22 MILLENNIUM x10(6)/mcL Hemoglobin 13.6 11.2 - CERNER 15.7 gm/dL MILLENNIUM Hematocrit 41.6 34.0 - CERNER 45.0 % MILLENNIUM MCV 103.2 (H) 79.0 - CERNER 94.0 fL MILLENNIUM MCH 33.7 (H) 26.6 - CERNER 32.2 pg MILLENNIUM MCHC 32.7 32.0 - CERNER 36.5 gm/dL MILLENNIUM Platelets 212 145 - 370 CERNER x10(3)/mcL MILLENNIUM RDWSD 50.4 (H) 35.0 - CERNER 46.0 fL MILLENNIUM RDWCV 13.3 10.9 - CERNER 14.4 % MILLENNIUM MPV 11.1 9.0 - 12.0 CERNER fL MILLENNIUM Specimen Anatomical Collection Method Collection Time Receive d Time (Source) Location / / Volume Laterality Blood specimen 10/14/2012 12:03 3 (specimen) PM EDT 12:18 PM EDT Resulting Agency Comment Spec In Lab Sebastian Gross MD HEMATOLOGY ORDERABLES Performing Organization Address City/[facility]/[place] [address] CERNER MILLENNIUM documented in this encounter Visit Diagnoses Diagnosis Atypical lymphocytosis - Primary Lymphocytosis (symptomatic) Leukopenia Leukocytopenia, unspecified Anemia Anemia, unspecified documented in this encounter Care Teams Cleaning Associate Relationship Specialty Start Date End Date Jeremias Gates MD PCP - General 08/30/12 documented as of this encounter
--- OUTSIDE RECORDS SUMMARY | 2021-12-16 02:15 | XMS_ITS | Encounter Summary ---
:1965 Author Organization [facility] Address [address] [place] [address] Care Team Providers Name Role Phone Shy Matamoros MD Primary Care Provider Encounter Details Date Type Department Care Team Description 09/28/2015 Results Only [facility] Jad Zepeda MD [phone] LEIGHANN SYED MD [phone] (Wo rk) Social History Tobacco Use Types Packs/Day Years Used Date Never Assessed Sex Assigned at Date Recorded Female 04/04/2021 10:49 EST documented as of this encounter Plan of Treatment Not on filedocumented as of this encounter Procedures Procedure Name Priority Date/Time Associated Diagnosis Comme nts PAP TEST- RESULT Routine 09/28/2015 0:00 EDT Resu lts for this ONLY procedure are i n the results section. documented in this encounter Results PAP TEST- RESULT ONLY (09/28/2015 0:00 EDT) Pathology Report: CYTOPATHOLOGY REPORT [facility] Reports generated via electronic interface contain zara ginal data; SERVICES however they are lacking the format of the original re port. Caution should be taken when reading/interpreting unfo rmatted reports. Name: ? BRYANNA BAL ? Accession #: ? [id number] ? : ? 1965 (Age: 50) ??F ?Collect Date: ? 09/28/2015 ? Location: ? [facility] ? Receive Date: ? 09/30/19 16 ? Provider: JAD ZEPEDA MD Copy to: ? Final Report SPECIMEN ADEQUACY ? Satisfactory for Evaluation - transformation zone component present GENERAL CATEGORIZATION ? Negative for Intraepithelial Lesion or Malignan cy INTERPRETATION ? Reactive cellular karyn nges associated with inflammation present (includes repair). EDUCATIONAL NOTES/RECOMMENDATIONS ? An additional slide was prepared and evaluated. Last Menstrual Period: 08/26/15 Hormonal/Contraceptive status: None Other: Additional clinical information: Previous paps WNL: 06/2007, 11/2010 Specimen/Source: ??Pap Test, Cervix/Endocervix, ThinPr ep Imaging System with manual evaluation Document reviewed and electronically signed by: ? IJEOMA LEWIS MD ? Report ??Date: 10/12/2015 14:53 HPV with Pap Test ? Date Ordered: ? 10/12/2015 ? Status: ?? S igned Out ?Date Complete: ? 10/14/2015 ? By: ??Sy stem Interface ? Date Reported: ? 10/14/2015 ? Interpretation RESULT: Negative for HPV. No E6 or E7 mRNA is detected from HPV types 16,18,31,3 3,35, 39,45,51,52,56,58,59,66, and 68 by straight line edger media anuel amplification. Comments Document reviewed and electronically signed by: ? System Interface ? Report date: 10/14/2015 By the signature above, the attending physician certif ies that he/she has personally conducted a gross and/or microscopic examin ation of the described specimens and rendered or confirmed the above diagnosi s. End of Report Specimen Performing Organization Address City/State/ZIP Code Phon e Number [facility] [address] [place] [address] SERVICES documented in this encounter Visit Diagnoses Not on filedocumented in this encounter Care Teams Apartment Maintenance Relationship Specialty Start Date End Date Shy Matamoros MD PCP - General 09/05/[address] [place] [address] [place] [address] documented as of this encounter
--- OUTSIDE RECORDS SUMMARY | 2021-12-16 02:15 | XMS_ITS | Encounter Summary ---
:1965 Author Organization [facility] [place] [address] Care Team Providers Name Role Phone Unknown Primary Care Provider Unavailable Encounter Details Date Type Department Care Team Description 09/13/2011 Orders Only Hematology and Jasmine Vu al lymphocytosis Oncology at [facility] MD Chinyere (Primary Dx) [facility] [address] Cuadra [place] HEMATOLOGY/ONCOLOGY [phone] DEPT. [phone] [place], [place] [address] (Wo rk) Social History Tobacco Use Types Packs/Day Years Used Date Never Smoker Sex Assigned at Date Recorded Not on file documented as of this encounter Plan of Treatment Not on filedocumented as of this encounter Visit Diagnoses Diagnosis Atypical lymphocytosis - Primary Lymphocytosis (symptomatic) documented in this encounter Care Teams Bag Filler Machine Operator Relationship Specialty Start Date End Date Unknown PCP - General 09/04/11 08/29/12 None documented as of this encounter
--- OUTSIDE RECORDS SUMMARY | 2021-12-16 02:15 | XMS_ITS | Encounter Summary ---
:1965 Author Organization [facility] Address [address] [place] [address] Care Team Providers Name Role Phone Unavailable Primary Care Provider Unavailable Encounter Details Date Type Department Care Team Description 05/11/2006 Results Only [facility] - Rafa Rosario MD Maple conversion [address] [place], [place] [address]ili, [place] [address] (Wo rk) Social History Tobacco Use Types Packs/Day Years Used Date Never Assessed Sex Assigned at Date Recorded Female 04/04/2021 10:49 EST documented as of this encounter Plan of Treatment Not on filedocumented as of this encounter Procedures Procedure Name Priority Date/Time Associated Diagnosis Comme nts CYTOPATHOLOGY Routine 05/11/2006 0:00 EST Results for this procedure are i n the results section . documented in this encounter Results CYTOPATHOLOGY (05/11/2006 0:00 EST) Pathology Report: CYTOPATHOLOGY REPORT [facility] Reports generated via electronic interface contain zara ginal data; however they are lacking the format of the original re port. Caution should be taken when reading/interpreting unfo rmatted reports. Name: ? SAVANNA BAL ? Accession #: ? [id number] : ? 1965 (Age: 41) ??F ?Collect Date: ? 030 11/2006 Location: ? [facility] ? Receive Date : ? 05/14/2006 Provider: ?SANDEEP ROSARIO MD Copy to: ?LILY PIÑA MD ? Specimen/Source: ? ThinPrep Pap Test, Cervix/Endocervix, processed on [employer] ThinPrep Imaging System, with manual evaluation Last Menstrual Period: ? 04/27/06 Other: ? HPVDX - HPV testing requested regardless of diag nosis on current ThinPrep Pap test. ? SPECIMEN ADEQUACY ? Satisfactory for Evaluation - transformation zone component absent GENERAL CATEGORIZATION ? Negative for Intraepithelial Lesion or Malignan cy ? Document reviewed and electronically signed by: ? AIRAM Márquez(ASCP) ? Report Date: ??05/16/2006 10:42 End of Report Specimen Performing Organization Address City/State/ZIP Code Phon e Number [facility] [address] [place] [address] SERVICES [facility] [address] [place] [address] documented in this encounter Visit Diagnoses Not on filedocumented in this encounter
--- OUTSIDE RECORDS SUMMARY | 2021-12-16 02:15 | XMS_ITS | Encounter Summary ---
:1965 Author Organization [facility] Address [address] [place] [address] Care Team Providers Name Role Phone Unavailable Primary Care Provider Unavailable Encounter Details Date Type Department Care Team Description 05/11/2006 Hospital Encounter [facility] - Yen Rosario MD Other [address] [place] [id number] [place] [address], [place] [phone] (Wo rk) Social History Tobacco Use Types Packs/Day Years Used Date Never Assessed Sex Assigned at Date Recorded Female 04/04/2021 10:49 EST documented as of this encounter Discharge Disposition Disposition Code Departure Means Destination Auto Discharge documented in this encounter Plan of Treatment Not on filedocumented as of this encounter Procedures Procedure Name Priority Date/Time Associated Diagnosis Comme nts HPV DETECTION, HIGH Routine 05/11/2006 8:29 EST R esults for this RISK TYPES procedure are i n the results section. documented in this encounter Results HUMAN PAPILLOMA VIRUS DNA TEST (05/11/2006 8:29 EST) Specimen Description Cervix, ThinPrep [facility] vial Result Negative for HPV [facility] types 16, 18, 31, 33, 35, 39, 45, 51, 52, 56, 58, 59, and 68. Report Status Final [facility] [id number] Specimen Performing Organization Address City/State/ZIP Code Phon e Number [facility] [address] [place] [address] SERVICES [facility] [address] [place] [address] documented in this encounter Visit Diagnoses Not on filedocumented in this encounter
--- OUTSIDE RECORDS SUMMARY | 2021-12-16 02:15 | XMS_ITS | Encounter Summary ---
:1965 Author Organization [facility] Address [address] [place] [address] Care Team Providers Name Role Phone Shy Matamoros MD Primary Care Provider Encounter Details Date Type Department Care Team Description 09/04/2011 Results Only [facility]- Espinoza Inman MD [phone] [phone] (Wo rk) Social History Tobacco Use Types Packs/Day Years Used Date Never Assessed Sex Assigned at Date Recorded Female 04/04/2021 10:49 EST documented as of this encounter Plan of Treatment Not on filedocumented as of this encounter Procedures Procedure Name Priority Date/Time Associated Diagnosis Comme nts FLOW CYTOMETRY Routine 09/04/2011 11:04 EDT Resul ts for this procedure are i n the results section . documented in this encounter Results FLOW CYTOMETRY (09/04/2011 11:04 EDT) Pathology FLOW CYTOMETRY REPORT [facility] Report: LAB Reports generated via electronic interface contain zara ginal data; however they are lacking the format of the original re port. Caution should be taken when reading/interpreting unfo rmatted reports. Name: ? SAVANNA BAL ? Accession #: ? [id number] : ? 1965 (Age: 46) ??F ?Collect Date: ? 04/2011 11:04 Location: ? [facility] ? Receive Date: ? 09/04/2011 19:00 Provider: ?ESPINOZA STILES MD Copy to: ? FINAL IMMUNOPHENOTYPIC INTERPRETATION: ? Peripheral blood, flow cytometric analysis: ??- Immunophenotypically aberrant T-cell population. ??See comment. ? COMMENT: ? The results of flow c ytometry are those of an immunophenotypically aberrant population of T-cells that raise the possibility of in volvement by a lymphoproliferative disorder of T-cell lineage. ??Correlation of these findings with morphologic and clinical data is essential. ? Document reviewed and electronically signed by: ? EUGENIO DANIELLE MD Report Date: ??09/05/2011 15:31 By the signature above, the attending physician certif ies that he/she has personally conducted an evaluation of the described sp ecimen and rendered or confirmed the above diagnosis. CLINICAL HISTORY: ? The patient is a 46-year-old woman with leukope sukhdev. DESCRIPTION: ? The specimen consists of peripheral blood subjected to erythrocyte lysis by an ammonium chloride-based technique. ??Gating is perf ormed using CD45 fluorescence and side scatte r. ??Cellular viability (assessed by propidium iodide exclusion) is excellent (100 %) among cells with CD45 and side scatter properties typical of lymphocytes and excellent (98%) among CD45+ events overall. Expression of the following markers is t ested: ??CD2, CD3, CD4, CD5, CD7, CD8, CD10, CD11b, CD11c, CD13, CD 14, CD16, CD19, CD20, CD23, CD33, CD34, CD38, CD45, CD56, CD57, CD117, FMC-7, HLA-DR, kappa light chain, l ambda light chain. ?? There is a immunophenotypica lly aberrant population of T-lymphocytes accounting for 19% of the lymphocytes. ??The cells comprising this population are positive for CD8 (slightly dimmer than in typical T-cells), CD7, CD2, and CD5, and they are negative for CD3. ??By l ight scatter criteria, the cells are similar in size to normal lymphocytes. ?? The remaining lymphoid cells are polyclonal T-lymphocy pablito (CD2+CD3+CD5+CD7+) with CD4+ and CD8+ subsets represented. ??The remainin g lymphocytes are B-lymphocytes (CD19+CD20+) a nd NK-cells (CD2+CD3-CD16+CD56+). ??B-cells are few in number but appear polytypic. ??The remainder of the CD45+ events is predominantly of myeloid lineage. ??There is no increa se in blasts. ? This test was develop ed and its performance characteristics determined by the Department of Pathology and Laboratory Medicine, [place], [place] ??It has not been cleared or approved by the U.S. Food and Drug Administration. ?? End of Report ?? Specimen Performing Organization Address City/State/[facility] Code Phon e Number [facility] [address] [place] [address] SERVICES [facility] [address] [place] [address] documented in this encounter Visit Diagnoses Not on filedocumented in this encounter Care Teams Body Man Relationship Specialty Start Date End Date Shy Matamoros MD PCP - General 09/05/11 [place] [address] documented as of this encounter
--- OUTSIDE RECORDS SUMMARY | 2021-12-16 02:15 | XMS_ITS | Clinical Summary ---
:1965 Author Organization [facility] [place] [address] Care Team Providers Name Role Phone Jeremias Gates MD Primary Care Provider Allergies Active Allergy Reactions Severity Noted Date Comments Oxycodone-Acetaminophen Palpitations 09/04/2011 Tetracycline Nausea Only 09/04/2011 Medications Medication Sig Dispensed Refills Start Date End Date Status ibuprofen Take 200 mg by mouth 0 Active (ADVIL;MOTRIN) 800 every 6 hours as mg needed. Indications: tabletIndications: Osteoarthritis osteoarthritis Active Problems Problem Noted Date Leukopenia 10/14/2012 Anemia 10/14/2012 Atypical lymphocytosis Gilbert syndrome Social History Tobacco Use Types Packs/Day Years Used Date Never Smoker Sex Assigned at Date Recorded Not on file Last Filed Vital Signs Vital Sign Reading [...] Mass Index 24.19 10/14/2012 9:34 AM EDT Plan of Treatment Health Maintenance Due Date Last Done Comments Covid-19 Vaccine (#1) 1965 HIV screen 02/15/1982 Hepatitis C Screening 02/15/1982 Tdap adult 02/15/1983 Tetanus vaccine 02/15/1983 HPV test 02/15/1994 PAP Smear 02/15/1994 Breast Cancer Share Decision Needed 2004 Colonoscopy 02/15/2009 Breast Cancer screening 02/15/2014 Zoster vaccine (1 of 2) 02/15/2014 Advance Directive 02/15/2019 Influenza (Flu) vaccine (1 of 1 - Influenza standard 11/03/2021 series) Care Teams Associate Professor Of Communication Relationship Specialty Start Date End Date Jeremias Gates MD PCP - General 08/30/12
--- OUTSIDE RECORDS SUMMARY | 2021-12-16 02:15 | XMS_ITS | Clinical Summary ---
:1965 Author Organization [facility] Address [address] [place] [address] Care Team Providers Name Role Phone Shy Matamoros MD Primary Care Provider Social History Tobacco Use Types Packs/Day Years Used Date Never Assessed Sex Assigned at Date Recorded Female 04/04/2021 10:49 EST Plan of Treatment Health Maintenance Due Date Last Done Comments Hepatitis C Screen 1965 Social Determinants Of Health 1965 (SDOH) COVID-19 Vaccine (1) 02/15/1969 Behavioral Health Screen 1976 HIV Screening 1980 Advance Directive 02/15/1982 Preventive Care Visit 02/15/1982 Pertussis (Adult) Immunization 02/15/1983 Tetanus (Adult) Immunization 02/15/1983 Lipid Profile Screening 07/06/2008 07/07/2003 (Cholesterol) Barium Enema (Colon Cancer 02/15/2014 Screening) Breast Cancer Screening 02/15/2014 01/12/2006, 07/27/2005, 07/14/2005, Additional history exists Colonoscopy (Colon Cancer 02/15/2014 Screening) Colorectal Cancer Screening 02/15/2014 Fecal Blood Test (Colon Cancer 02/15/2014 Screening) Fecal DNA (Colon Cancer Screening) 02/15/2014 Shingles Immunization (1 of 2) 02/15/2014 Sigmoidoscopy (Colon Cancer 02/15/2014 Screening) Influenza Immunization (Adult) 12/03/2020 (#1) Cervical Cancer Screening 02/15/2024 02/14/2021, 09/28/2015 , 11/24/2010 Insurance Payer Benefit Plan Subscriber ID Effective Phone Address Typ e / Group Dates [employer] [id number] 2018-Joelle [phone] [address] [employer] [address] [place] [address] Guarantor Name Account Type Relation to Date of Phone Billing Patient Address Savanna Hussein Personal/Family Self 1965 [address] (Home) [place] [address] Savanna Hussein Personal/Family Self 1965 [address] (Home) [place] [address] Savanna Hussein Personal/Family Self 1965 [address]Home) [place] [address] Savanna Hussein Personal/Family Self 1965 [address] (Home) [place] [address] Savanna Hussein Personal/Family Self 1965 [address] (Home) [place] [address] Savanna Hussein Personal/Family Self 1965 [address] (Home) [place] [address] Savanna Hussein Personal/Family Self 1965 [address] (Home) [place] [address] Savanna Hussein Personal/Family Self 1965 [address] (Home) [place] [address] Care Teams Reimbursement Liaison Relationship Specialty Start Date End Date Shy Matamoros MD PCP - General 09/05/11 [facility] [place] [address] [place] [address]
--- OUTSIDE RECORDS SUMMARY | 2021-12-16 02:16 | XMS_ITS | Encounter Summary ---
:1965 Author Organization [facility] Address [address] [place] [address] Care Team Providers Name Role Phone Shy Matamoros MD Primary Care Provider Encounter Details Date Type Department Care Team Description 03/13/2003 Hospital Encounter [facility] - Yen Rosario MD Other [address] [address] [address], [place] [address] (Wo rk) Social History Tobacco Use Types Packs/Day Years Used Date Never Assessed Sex Assigned at Date Recorded Female 04/04/2021 10:49 EST documented as of this encounter Plan of Treatment Not on filedocumented as of this encounter Procedures Procedure Name Priority Date/Time Associated Diagnosis Comme nts CYTOPATHOLOGY Routine 03/13/2003 0:00 EST Results for this procedure are i n the results section . documented in this encounter Results CYTOPATHOLOGY (03/13/2003 0:00 EST) Pathology Report: CYTOPATHOLOGY REPORT [facility] Reports generated via electronic interface contain zara ginal data; however they are lacking the format of the original re port. Caution should be taken when reading/interpreting unfo rmatted reports. Name: ? SAVANNA BAL ? Accession #: ? [id number] : ? 1965 (Age: 38) ??F ?Collect Date: ? 11/2003 Location: ? [facility] ? Receive Date : ? 03/18/2003 Provider: ?SANDEEP ROSARIO MD Copy to: ?TERESA AARON VELAZQUEZ ? Specimen/Source: ?ThinPrep Pap Test, Cervix/ Endocervix Last Menstrual Period: ? 02/22/03 ? SPECIMEN ADEQUACY ? Satisfactory for Evaluation - transformation zone component absent GENERAL CATEGORIZATION ? Negative for Intraepithelial Lesion or Malignan cy ? Document reviewed and electronically signed by: ? CIRA Reis(ASCP) ? Report Date: ??03/23/2003 10:45 End of Report Specimen Performing Organization Address City/State/ZIP Code Phon e Number [facility] [address] [place] [address] SERVICES [facility] [address] [place] [address] documented in this encounter Visit Diagnoses Not on filedocumented in this encounter Care Teams Automation Tender Relationship Specialty Start Date End Date Shy Matamoros MD PCP - General 09/05/11 [address] [place] [address] documented as of this encounter
--- OUTSIDE RECORDS SUMMARY | 2021-12-16 02:16 | XMS_ITS | Encounter Summary ---
:1965 Author Organization [facility] Address [address] [place] [address] Care Team Providers Name Role Phone Unavailable Primary Care Provider Unavailable Encounter Details Date Type Department Care Team Description 11/06/2000 Results Only [facility] - Rafa Rosario MD Maple conversion [id number] [place] [address], [place] [address] (Wo rk) Social History Tobacco Use Types Packs/Day Years Used Date Never Assessed Sex Assigned at Date Recorded Female 04/04/2021 10:49 EST documented as of this encounter Plan of Treatment Not on filedocumented as of this encounter Procedures Procedure Name Priority Date/Time Associated Diagnosis Comme nts CYTOPATHOLOGY Routine 11/06/2000 0:00 EDT Results for this procedure are i n the results section . documented in this encounter Results CYTOPATHOLOGY (11/06/2000 0:00 EDT) Pathology Report: CYTOPATHOLOGY REPORT [facility] Reports generated via electronic interface contain zara ginal data; however they are lacking the format of the original re port. Caution should be taken when reading/interpreting unfo rmatted reports. Name: ? SAVANNA BAL ? Accession #: ? [id number] : ? 1965 (Age: 35) ??F ?Collect Date: ? 06/2000 Location: ? [facility] ? Receive Date : ? 11/08/2000 Provider: ?SANDEEP ROSARIO MD Copy to: ?TERESA AARON VELAZQUEZ ? Specimen/Source: ?ThinPrep Pap Test, Cervix/ Endocervix Last Menstrual Period: ? 10/22/00 ? SPECIMEN ADEQUACY ? Satisfactory for evaluation. GENERAL CATEGORIZATION ? Within Normal Limits ? Document reviewed and electronically signed by: ? Kathy Bateman, ??SCT(ASCP) ? Report Date: ??11/09/2000 14:14 End of Report Specimen Performing Organization Address City/State/ZIP Code Phon e Number [facility] [address] [phone] SERVICES [facility] [address] [place] [address] documented in this encounter Visit Diagnoses Not on filedocumented in this encounter
--- OUTSIDE RECORDS SUMMARY | 2021-12-16 02:16 | XMS_ITS | Encounter Summary ---
:1965 Author Organization [facility] Address [address] [place] [address] Care Team Providers Name Role Phone Shy Matamoros MD Primary Care Provider Encounter Details Date Type Department Care Team Description 07/07/2003 Hospital Encounter [facility] - Yen Rosario MD Other [address] [place] [address] [address], [place] [address] (Wo rk) Social History Tobacco Use Types Packs/Day Years Used Date Never Assessed Sex Assigned at Date Recorded Female 04/04/2021 10:49 EST documented as of this encounter Plan of Treatment Not on filedocumented as of this encounter Visit Diagnoses Not on filedocumented in this encounter Care Teams Structured Cabling Technician Relationship Specialty Start Date End Date Shy Matamoros MD PCP - General 09/05/[address] [place] [address] [place] [address] documented as of this encounter
--- OUTSIDE RECORDS SUMMARY | 2021-12-16 02:16 | XMS_ITS | Encounter Summary ---
:1965 Author Organization [facility] Address [address] [place] [address] Care Team Providers Name Role Phone Shy Matamoros MD Primary Care Provider Encounter Details Date Type Department Care Team Description 03/16/1999 Hospital Encounter [facility] - Yen Rosario MD [address] [address] [address], [place] [address] (Wo rk) Social History Tobacco Use Types Packs/Day Years Used Date Never Assessed Sex Assigned at Date Recorded Female 04/04/2021 10:49 EST documented as of this encounter Plan of Treatment Not on filedocumented as of this encounter Visit Diagnoses Not on filedocumented in this encounter Care Teams Health Plan Specialist Relationship Specialty Start Date End Date Shy Matamoros MD PCP - General 09/05/[address] [place] [address] [place] [phone] documented as of this encounter
--- OUTSIDE RECORDS SUMMARY | 2021-12-16 02:16 | XMS_ITS | Encounter Summary ---
:1965 Author Organization [facility] Address [address] [place] [address] Care Team Providers Name Role Phone Shy Matamoros MD Primary Care Provider Encounter Details Date Type Department Care Team Description 11/13/2000 Hospital Encounter [facility] - Mery Guerrero MD [address] [address] [address], [place] [phone] (Wo rk) Social History Tobacco Use Types Packs/Day Years Used Date Never Assessed Sex Assigned at Date Recorded Female 04/04/2021 10:49 EST documented as of this encounter Plan of Treatment Not on filedocumented as of this encounter Procedures Procedure Name Priority Date/Time Associated Diagnosis Comme nts GLUCOSE, PLASMA Routine 11/13/2000 9:19 EDT Resul ts for this procedure are i n the results section. TSH Routine 11/13/2000 9:19 EDT Results for this procedure are i n the results section. documented in this encounter Results TSH (11/13/2000 9:19 EDT) Pathologist Sig nature TSH 0.85 0.35 - 5.50 uIU/ml [facility] Specimen Performing Organization Address City/State/ZIP Code Phon e Number [facility] [address] [place] [address] SERVICES [facility] [address] [place] [address] GLUCOSE, PLASMA (11/13/2000 9:19 EDT) Pathologist Sig nature Glucose, Plasma 91 70 - 110 mg/dl [facility] Specimen Performing Organization Address City/State/ZIP Code Phon e Number [facility] [address] [place] [address] SERVICES [facility] [address] [place] [address] documented in this encounter Visit Diagnoses Not on filedocumented in this encounter Care Teams Goggles Assembler Relationship Specialty Start Date End Date Shy Matamoros MD PCP - General 09/05/[address] [place] [address] [place] [address] documented as of this encounter
--- OUTSIDE RECORDS SUMMARY | 2021-12-16 02:16 | XMS_ITS | Encounter Summary ---
:1965 Author Organization [facility] Address [address] [place] [address] Care Team Providers Name Role Phone Shy Matamoros MD Primary Care Provider Encounter Details Date Type Department Care Team Description 02/04/1999 Hospital Encounter [facility] - Kayla Gill, [facility] 111 [facility] 111 [place], [place] [address] [place] [address] Pav[place], Level [address] [place] [address] (Wo rk) Social History Tobacco Use Types Packs/Day Years Used Date Never Assessed Sex Assigned at Date Recorded Female 04/04/2021 10:49 EST documented as of this encounter Plan of Treatment Not on filedocumented as of this encounter Procedures Procedure Name Priority Date/Time Associated Diagnosis Comme nts PROFILE Routine 02/04/1999 15:45 Results for this EST procedure are i n the results section. BACTERIAL CULTURE, Routine 02/04/1999 15:45 Resul ts for this URINE EST procedure are i n the results section. documented in this encounter Results BACTERIAL CULTURE, URINE (02/04/1999 15:45 EST) Specimen Description Urine [facility] Result Less than 10,000 CFU/ml [facility] Gram positive organism Report Status Final [facility] [id number] Specimen Performing Organization Address City/State/ZIP Code Phon e Number [facility] [address] [place] [address] SERVICES [facility] [address] [place] [address] (ABNORMAL) PROFILE (02/04/1999 15:45 EST) ABO and Rh Type O POS [facility] Antibody Screen Neg [facility] WBC 6.09 4.0 - 12.4 [facility] RBC 3.59 (L) 3.86 - 5.04 [facility] M/cmm [facility] Hemoglobin 12.2 11.6 - 15.2 [facility] gm/dl [facility] HCT 36.1 34.9 - 44.4 % [facility] MCV 101 (H) 81 - 98 fl [facility] MCH 34.0 (H) 26.7 - 33.3 [facility] MCHC 33.8 32.1 - 35.9 [facility] gm/dl LAB PLT 235 141 - 320 [facility]/cmm [facility] RDW-CV 12.8 11.7 - 14.6 % [facility] Neutrophils 57.9 45.5 - 79.7 % [facility] Lymphocytes 28.8 15.0 - 46.8 % [facility] Monocytes 10.2 1.8 - 12.0 % [facility] Eosinophils 2.8 0.6 - 6.9 % [facility] Basophils 0.3 0.2 - 1.4 % [facility] ABS Neutrophils 3.52 2.20 - 8.85 [facility] ABS Lymphs 1.76 1.09 - 3.30 [facility] ABS Monocytes 0.62 0.1 - 0.8 [facility] ABS Eosinophils 0.17 0.03 - 0.61 [facility] ABS Basophils 0.02 0.01 - 0.11 [facility] Type of Diff: Automated [facility] Hepatitis B Surface Neg [facility] Syphilis Sero (RPR) NONREACT. NR Dils [facility] Rubella IgG Scr Antibody detected [facility] Specimen Performing Organization Address City/State/ZIP Code Phon e Number [facility] [address] [place] [address] SERVICES [facility] [address] [place] [address] documented in this encounter Visit Diagnoses Not on filedocumented in this encounter Care Teams Furniture Mover Relationship Specialty Start Date End Date Shy Matamoros MD PCP - General 09/05/[address] [place] [address] [place] [address] documented as of this encounter
--- OUTSIDE RECORDS SUMMARY | 2021-12-16 02:16 | XMS_ITS | Encounter Summary ---
:1965 Author Organization [facility] Address [address] [place] [address] Care Team Providers Name Role Phone Shy Matamoros MD Primary Care Provider Encounter Details Date Type Department Care Team Description 03/27/2002 Hospital Encounter [facility] - Shawn Escamilla, KARYNA [address] [place], [place] [phone] Other Unknown, Provider, [address] [place], [place] [phone] Social History Tobacco Use Types Packs/Day Years Used Date Never Assessed Sex Assigned at Date Recorded Female 04/04/2021 10:49 EST documented as of this encounter Plan of Treatment Not on filedocumented as of this encounter Procedures Procedure Name Priority Date/Time Associated Diagnosis Comme nts CYTOPATHOLOGY Routine 03/27/2002 0:00 EST Results for this procedure are i n the results section . documented in this encounter Results CYTOPATHOLOGY (03/27/2002 0:00 EST) Pathology Report: CYTOPATHOLOGY REPORT [facility] Reports generated via electronic interface contain zara ginal data; however they are lacking the format of the original re port. Caution should be taken when reading/interpreting unfo rmatted reports. Name: ? SAVANNA BAL ? Accession #: ? [id number] : ? 1965 (Age: 37) ??F ?Collect Date: ? 03/06 Location: ? [facility] ? Receive Date : ? 03/28/2002 Provider: ?SHAWN ESCAMILLA STAFFING ADMINISTRATOR Copy to: ?TERESA AARON VELAZQUEZ ? Specimen/Source: ?ThinPrep Pap Test, Cervix/ Endocervix Last Menstrual Period: ? 04/06 Menstrual/ Status: ? Post ? SPECIMEN ADEQUACY ? Satisfactory for Evaluation - transformation zone component present - scant squamous epithelial component GENERAL CATEGORIZATION ? Negative for Intraepithelial Lesion or Malignan cy ? Document reviewed and electronically signed by: ? Kathy Bateman, ??SCT(ASCP) ? Report Date: ??03/31/2002 10:40 End of Report Specimen Performing Organization Address City/State/ZIP Code Phon e Number [facility] [address] [place] [address] SERVICES [facility] [address] [place] [address] documented in this encounter Visit Diagnoses Not on filedocumented in this encounter Care Teams Ground Wirer Relationship Specialty Start Date End Date Shy Matamoros MD PCP - General 09/05/11 [address] [place] [address] documented as of this encounter
--- OUTSIDE RECORDS SUMMARY | 2021-12-16 02:16 | XMS_ITS | Encounter Summary ---
:1965 Author Organization [facility] Address [address] [place] [address] Care Team Providers Name Role Phone Unavailable Primary Care Provider Unavailable Encounter Details Date Type Department Care Team Description 05/03/2005 Hospital Encounter [facility] - Yen Rosario MD Other [address] [place] [phone] [place] [address], [place] [phone] (Wo rk) Social History Tobacco Use Types Packs/Day Years Used Date Never Assessed Sex Assigned at Date Recorded Female 04/04/2021 10:49 EST documented as of this encounter Discharge Disposition Disposition Code Departure Means Destination Home or Self Care documented in this encounter Plan of Treatment Not on filedocumented as of this encounter Visit Diagnoses Not on filedocumented in this encounter
--- OUTSIDE RECORDS SUMMARY | 2021-12-16 02:16 | XMS_ITS | Encounter Summary ---
:1965 Author Organization [facility] Address [address] [place] [address] Care Team Providers Name Role Phone Unavailable Primary Care Provider Unavailable Encounter Details Date Type Department Care Team Description 12/04/2003 Results Only [facility] - Royer Infante MD Maple conversion [address] [place] [address] [place] [address] [phone] Social History Tobacco Use Types Packs/Day Years Used Date Never Assessed Sex Assigned at Date Recorded Female 04/04/2021 10:49 EST documented as of this encounter Plan of Treatment Not on filedocumented as of this encounter Procedures Procedure Name Priority Date/Time Associated Comments Diagnosis COMPREHENSIVE Routine 12/04/2003 10:53 Results fo r this METABOLIC PANEL (CMP) EDT proced ure are in the results section. documented in this encounter Results (ABNORMAL) COMPREHENSIVE METABOLIC PANEL (12/04/2003 10:53 EDT) Pathologist [facility] nature Potassium 3.9 3.5 - 5.0 mEq/L [facility] Sodium 140 136 - 145 mEq/L [facility] Chloride 103 96 - 110 mEq/L [facility] CO2 29 24 - 32 mEq/L [facility] Total Alkaline 81 38 - 126 U/L [facility] Phosphatase Bilirubin, Total 1.7 (H) 0.2 - 1.3 mg/dl [facility] AST 26 15 - 46 U/L [facility] ALT 34 9 - 52 U/L [facility] Albumin 4.4 3.4 - 4.9 g/dl [facility] Total Protein 7.9 6.5 - 8.0 g/dl [facility] Creatinine 0.7 0.7 - 1.5 mg/dl [facility] BUN 17 10 - 26 mg/dl [facility] Calcium 8.7 8.5 - 10.5 [facility] mg/dl Calculated Calcium 8.7 8.5 - 10.5 [facility] mg/dl Glucose, Serum 90 70 - 110 mg/dl [facility] Albumin/Globulin Ratio 1.3 [facility] Specimen Performing Organization Address City/State/[facility] Code Phon e Number [facility] [address] [place] [address] SERVICES [facility] [address] [place] [address] documented in this encounter Visit Diagnoses Not on filedocumented in this encounter
--- OUTSIDE RECORDS SUMMARY | 2021-12-16 02:16 | XMS_ITS | Encounter Summary ---
:1965 Author Organization [facility] Address [address] [place] [address] Care Team Providers Name Role Phone Unavailable Primary Care Provider Unavailable Encounter Details Date Type Department Care Team Description 08/26/2001 Hospital Encounter [facility] - Jonh Bhatti [place] MD [address] [phone] [facility] Level [address] [place] [address] (Wo rk) Social History Tobacco [...]
--- OUTSIDE RECORDS SUMMARY | 2021-12-16 02:16 | XMS_ITS | Encounter Summary ---
:1965 Author Organization [facility] Address [address] [place] [address] Care Team Providers Name Role Phone Shy Matamoros MD Primary Care Provider Encounter Details Date Type Department Care Team Description 10/31/1999 Hospital Encounter [facility] - Carlos Brandt MD 111 [facility], Level [address] [place] [address] Other Unknown, Provider, [address] [place] [address] Social History Tobacco Use Types Packs/Day Years Used Date Never Assessed Sex Assigned at Date Recorded Female 04/04/2021 10:49 EST documented as of this encounter Plan of Treatment Not on filedocumented as of this encounter Procedures Procedure Name Priority Date/Time Associated Diagnosis Comme nts CYTOPATHOLOGY Routine 10/31/1999 0:00 EDT Results for this procedure are i n the results section . documented in this encounter Results CYTOPATHOLOGY (10/31/1999 0:00 EDT) Pathology Report: CYTOPATHOLOGY REPORT [facility] Reports generated via electronic interface contain zara ginal data; however they are lacking the format of the original re port. Caution should be taken when reading/interpreting unfo rmatted reports. Name: ? SAVANNA BAL ? Accession #: ? [id number] : ? 1965 (Age: 34) ??F ?Collect Date: ? 10/04 Location: ? [facility] ? Receive Date : ? 11/02/1999 Provider: ?CARLOS BRANDT MD Copy to: ?TERESA AARON VELAZQUE[facility] ? Specimen/Source: ?ThinPrep Pap Test, Cervix/ Endocervix Last Menstrual Period: ? 6 weeks Menstrual/ Status: ? Post ? SPECIMEN ADEQUACY ? Satisfactory for evaluation but limited by scan t squamous epithelial component secondary to excessive blood. GENERAL CATEGORIZATION ? Within Normal Limits ? Document reviewed and electronically signed by: ? Kathy Bateman, ??SCT(ASCP) ? Report Date: ??11/02/1999 12:59 End of Report Specimen Performing Organization Address City/State/ZIP Code Phon e Number [facility] [address] [place] [address] SERVICES [facility] [address] [place] [address] documented in this encounter Visit Diagnoses Not on filedocumented in this encounter Care Teams Center Director Relationship Specialty Start Date End Date Shy Matamoros MD PCP - General 09/05/11 [address] [place] [address] documented as of this encounter
--- OUTSIDE RECORDS SUMMARY | 2021-12-16 02:16 | XMS_ITS | Encounter Summary ---
:1965 Author Organization [facility] Address [address] [place] [address] Care Team Providers Name Role Phone Unavailable Primary Care Provider Unavailable Encounter Details Date Type Department Care Team Description 02/04/2002 - Hospital Encounter [facility] Finn Brandt, 02/07/2002 Mother/Baby Unit MD 111 [facility] [address] [place] [address] Avenue [phone] [facility] 4 [place] [address] (Wo rk) Social History Tobacco Use Types Packs/Day Years Used Date Never Assessed Sex Assigned at Date Recorded Female 04/04/2021 10:49 EST documented as of this encounter Discharge Disposition Disposition Code Departure Means Destination Home-Health Care Svc documented in this encounter Plan of Treatment Not on filedocumented as of this encounter Procedures Procedure Name Priority Date/Time Associated Diagnosis Comme nts COMPLETE BLOOD Routine 02/05/2002 9:25 EST Result s for this COUNT procedure are i n the results section. HEMAGRAM & DIFF Routine 02/04/2002 7:46 EST Resul ts for this procedure are i n the results section. SURGICAL PATHOLOGY Routine 02/04/2002 0:00 EST Re sults for this procedure are i n the results section. documented in this encounter Results (ABNORMAL) HEMAGRAM (02/05/2002 9:25 EST) Pathologist Sig nature WBC 8.07 4.0 - 12.4 K/cmm [facility] RBC 2.81 (L) 3.86 - 5.04 M/cmm [facility] Hemoglobin 10.4 (L) 11.6 - 15.2 gm/dl [facility] HCT 29.9 (L) 34.9 - 44.4 % [facility] MCV 107 (H) 81 - 98 fl [facility] MCH 36.9 (H) 26.7 - 33.3 pg [facility] MCHC 34.6 32.1 - 35.9 gm/dl [facility] PLT 183 141 - 320 K/cmm [facility] RDW-CV 14.1 11.7 - 14.6 % [facility] Specimen Performing Organization Address City/State/ZIP Code Phon e Number [facility] [address] [place] [address] SERVICES [facility] [address] [place] [address] (ABNORMAL) HEMAGRAM & DIFF (02/04/2002 7:46 EST) WBC 7.81 4.0 - 12.4 [facility] K/cmm RBC 3.28 (L) 3.86 - 5.04 [facility] M/cmm Hemoglobin 11.8 11.6 - 15.2 [facility] gm/dl HCT 34.6 (L) 34.9 - 44.4 % [facility] MCV 106 (H) 81 - 98 fl [facility] MCH 36.1 (H) 26.7 - 33.3 pg [facility] MCHC 34.2 32.1 - 35.9 [facility] gm/dl PLT 163 141 - 320 [facility] K/cmm RDW-CV 14.0 11.7 - 14.6 % [facility] Neutrophils 66 45.5 - 79.7 % [facility] Lymphocytes 20 15.0 - 46.8 % [facility] Monocytes 14 (H) 1.8 - 12.0 % [facility] ABS Neutrophils 5.16 2.20 - 8.85 [facility] K/cmm ABS Lymphs 1.56 1.09 - 3.30 [facility] K/cmm ABS Monocytes 1.09 (H) 0.1 - 0.8 [facility] K/cmm RBC Morphology 1+ Anisocytosis [facility] 1+ Macrocytes 1+ Polychromasia Type of Diff: Manual [facility] Specimen Performing Organization Address City/State/ZIP Code Phon e Number [facility] [address] [place] [address] SERVICES [facility] [address] [place] [address] SURGICAL PATHOLOGY (02/04/2002 0:00 EST) Pathology Report: SURGICAL PATHOLOGY REPORT [facility] Reports generated via electronic interface contain zara ginal data; LAB however they are lacking the format of the original re port. Caution should be taken when reading/interpreting unfo rmatted reports. Name: ? BRYANNA BAL ? Accession #: ? [id number] ? : ? 1965 (Age: 36) ??F ? Collect Date: ? 02/04/2002 ? Location: ? SB05 ? Receive Date: ? 002 ? Provider: CARLOS BRANDT MD Copy to: TERESA AARON V[facility] ? Final Pathologic Diagnosis: A. ?Fallopian tube, right, ligation: 1. ?Portion of fallopian tube with no significant pathologic features. 2. ?Complete cross sections identified. B. ?Fallopian tube, left, ligation: 1. ?Portion of fallopian tube with no significant pathologic features. 2. ?Complete cross sections identified. Document reviewed and electronically signed by: RICHIE MASON MD Report ??Date: 02/06/2002 18:58 By the signature above, the attending physician certif ies that he/she has personally conducted a gross and/or microscopic examin ation of the described specimens and rendered or confirmed the above diagnosi s. Specimen(s) Received: A. ?Section of right fallopian tube (#1) B. ?Section of left fallopian tube (#2) Clinical History: ? LMP 05/02/01 Gross Description: ? Received fresh labele lucas Bal and #1 R is a rodriguez-pink tubular 2.7 cm in length, 0.5 cm in diameter soft tissue surfaced by a rodriguez glistening serosa. ??Upon sectioning, t he cut surfaces are rodriguez-white with a central pinpoint lumen. ??No definitive nodul es are identified. ??Two claims service representative sections are submitted as (A). Received fresh labeled Zainab hussein and #2 L is a rodriguez-pink tubular 1.0 cm in length, 0.5 cm in diameter soft tissue surfaced by a t an glistening serosa. Upon sectioning, the cut surfaces are ta n-white with a central pinpoint lumen. The specimen is serially sec tioned and two claims service representative sections are submitted as (B). ??(Ivan Sanchez)/florence End of Report Specimen Performing Organization Address City/State/ZIP Code Phon e Number [facility] [address] [place] [address] SERVICES [facility] [address] [place] [address] documented in this encounter Visit Diagnoses Not on filedocumented in this encounter
--- OUTSIDE RECORDS SUMMARY | 2021-12-16 02:16 | XMS_ITS | Encounter Summary ---
:1965 Author Organization [facility] [address] [place] [address] Care Team Providers Name Role Phone Unavailable Primary Care Provider Unavailable Encounter Details Date Type Department Care Team Description 06/30/2005 Hospital Encounter [facility] - Mery Guerrero MD [address] [address] [address], [place] [phone] (Wo rk) Social History Tobacco Use Types Packs/Day Years Used Date Never Assessed Sex Assigned at Date Recorded Female 04/04/2021 10:49 EST documented as of this encounter Discharge Disposition Disposition Code Departure Means Destination Auto Discharge documented in this encounter Plan of Treatment Not on filedocumented as of this encounter Procedures Procedure Name Priority Date/Time Associated Diagnosis Comme nts MA MAMMO SCREENING 06/30/2005 15:04 Resul ts for this DIGITAL EDT procedure are i n the results section. documented in this encounter Results MA MAMMO SCREENING DIGITAL (06/30/2005 15:04 EDT) Anatomical Region Laterality Modality Other Specimen Narrative [facility] - 12/03/2008 17 :36 EDT ROUTINE Comparison is made to films from 998. Left Breast Findings: (CAD used to inter pret routine digital): There are scattered fibroglandular densi ties. Three clusters of heterogeneous and punctate calcification s are present, one at 9 o'clock, the second at 12:[address] at 2:00. This is a new finding. ??In 1997, the patient was lact ating, and the breast density has significantly decreased since then. There are no other significant abnormalities. Right Breast Findings: (CAD used to inte rpret routine digital): There are scattered fibroglandular densi ties. No significant masses, calcifications or other abnormalities ar e seen. IMPRESSION: LEFT BREAST - CATEGORY 0 Three groups of new clustered heterogene ous and punctate calcifications. Spot magnification view( s) are recommended at this time in the CC and ML views. RIGHT BREAST - CATEGORY 1 Negative, no evidence of malignancy. Nor mal interval follow-up is recommended in 12 months. OVERALL ASSESSMENT - INCOMPLETE: NEED AD DITIONAL IMAGING EVALUATION END OF IMPRESSION Procedure Note Christine Mcleod MD - 12/03/2008 ROUTINE Comparison is made to films from 998. Left Breast Findings: (CAD used to inter pret routine digital): There are scattered fibroglandular densi ties. Three clusters of heterogeneous and punctate calcification s are present, one at 9 o'clock, the second at 12:[address] at 2:00. This is a new finding. In 1997, the patient was lactat ing, and the breast density has significantly decreased since then. There are no other significant abnormalities. Right Breast Findings: (CAD used to inte rpret routine digital): There are scattered fibroglandular densi ties. No significant masses, calcifications or other abnormalities ar e seen. IMPRESSION: LEFT BREAST - CATEGORY 0 Three groups of new clustered heterogene ous and punctate calcifications. Spot magnification view( s) are recommended at this time in the CC and ML views. RIGHT BREAST - CATEGORY 1 Negative, no evidence of malignancy. Nor mal interval follow-up is recommended in 12 months. OVERALL ASSESSMENT - INCOMPLETE: NEED AD DITIONAL IMAGING EVALUATION END OF IMPRESSION Performing Organization Address City/State/ZIP Code Phon e Number [facility] 111 [facility] [place] [address] [facility] [address] [place], [place] [address] documented in this encounter Visit Diagnoses Not on filedocumented in this encounter
--- OUTSIDE RECORDS SUMMARY | 2021-12-16 02:16 | XMS_ITS | Encounter Summary ---
:1965 Author Organization [facility] Address [address] [place] [address] Care Team Providers Name Role Phone Shy Matamoros MD Primary Care Provider Encounter Details Date Type Department Care Team Description 11/19/2001 [facility] 111 [facility] 111 [place], [place] [address] [place] [address] [address], [address] [place] [address] (Wo rk) Social History Tobacco Use Types Packs/Day Years Used Date Never Assessed Sex Assigned at Date Recorded Female 04/04/2021 10:49 EST documented as of this encounter Plan of Treatment Not on filedocumented as of this encounter Procedures Procedure Name Priority Date/Time Associated Comments Diagnosis GLUCOSE TOLERANCE, Routine 11/19/2001 8:13 Result s for this 3HR GESTATIONAL EDT procedure ar e in the results section. documented in this encounter Results (ABNORMAL) GLUCOSE TOLERANCE, 3HR GESTATIONAL (11/19/2001 8:13 EDT) Glucose Carlos A, 85 50 - 95 mg/dl [facility] Glucose Carlos A, 1 hr 204 (H) 50 - 180 [facility] mg/dl LAB Glucose Carlos A, 2hr 135 50 - 155 [facility] mg/dl LAB Gest Gluc Carlos A, 3hr 107 50 - 140 [facility] Comment: mg/dl LAB The diagnosis of diabetes is made if two or more of the glucose values exceed the reference range listed. Glucose Dose 100 g [facility] Specimen Performing Organization Address City/State/ZIP Code Phon e Number [facility] [address] [place] [address] SERVICES [facility] [address] [place] [address] documented in this encounter Visit Diagnoses Not on filedocumented in this encounter Care Teams Shuttle Fixer Relationship Specialty Start Date End Date Shy Matamoros MD PCP - General 09/05/[address] [place] [address] [place] [address] documented as of this encounter
--- OUTSIDE RECORDS SUMMARY | 2021-12-16 02:16 | XMS_ITS | Encounter Summary ---
:1965 Author Organization [facility] Address [address] [place] [address] Care Team Providers Name Role Phone Unavailable Primary Care Provider Unavailable Encounter Details Date Type Department Care Team Description 07/07/2003 Results Only [facility] - Rafa Rosario MD [facility] [address] [address] [address], [place] [phone] (Wo rk) Social History Tobacco Use Types Packs/Day Years Used Date Never Assessed Sex Assigned at Date Recorded Female 04/04/2021 10:49 EST documented as of this encounter Plan of Treatment Not on filedocumented as of this encounter Procedures Procedure Name Priority Date/Time Associated Comments Diagnosis HEMOGLOBIN A1C Routine 07/07/2003 8:40 EDT Result s for this procedure are i n the results section. LIPID PROFILE Routine 07/07/2003 8:40 EDT Results for this (INCLUDES procedure are i n CHOLESTEROL, the results TRIGLYCERIDES, HDL, section. LDL) documented in this encounter Results LIPID PROFILE (INCLUDES CHOLESTEROL, TRIGLYCERIDES, HDL, LDL) (07/07/2003 8:40 EDT) Cholesterol 145 mg/dl [facility] Comment: Desirable:<200 Borderline:200-239 High Risk:>qh=[id number] Triglycerides 85 35 - 160 mg/dl [facility] HDL 63 mg/dl [facility] Comment: Highly Desirable:>60 Desirable:35-60 High Risk:<35 LDL, Calculated 65 mg/dl [facility] Comment: Desirable:<130 Borderline:130-159 High Risk:>um=076 Chol/HDL Ratio 2.3 [facility] Specimen Performing Organization Address City/State/ZIP Code Phon e Number [facility] 111 [place] [address] SERVICES [facility] 111 [place] [address] HEMOGLOBIN A1C (07/07/2003 8:40 EDT) Hemoglobin A1C 5.2 % [facility] Comment: <6% Normal Range <7% Recommended goal by ADA guidelines 7-8% Suboptimal by ADA guidelines >8% Further action suggested by ADA guidelines Specimen Performing Organization Address City/State/ZIP Code Phon e Number [facility] [address] [place] [address] SERVICES [facility] [address] [place] [address] documented in this encounter Visit Diagnoses Not on filedocumented in this encounter
--- OUTSIDE RECORDS SUMMARY | 2021-12-16 02:16 | XMS_ITS | Encounter Summary ---
:1965 Author Organization [facility] Address [address] [place] [address] Care Team Providers Name Role Phone Unavailable Primary Care Provider Unavailable Encounter Details Date Type Department Care Team Description 07/27/2005 Results Only [facility] - Hernesto Sesay MD Maple conversion [address] [place] [address] [place] [phone] (Wo rk) Social History Tobacco Use Types Packs/Day Years Used Date Never Assessed Sex Assigned at Date Recorded Female 04/04/2021 10:49 EST documented as of this encounter Plan of Treatment Not on filedocumented as of this encounter Procedures Procedure Name Priority Date/Time Associated Diagnosis Comme nts SURGICAL PATHOLOGY Routine 07/27/2005 0:00 EDT Re sults for this procedure are i n the results section. documented in this encounter Results SURGICAL PATHOLOGY (07/27/2005 0:00 EDT) Pathology SURGICAL PATHOLOGY REPORT [facility] Report: Reports generated via electronic interface contain zara ginal data; LAB however they are lacking the format of the original re port. Caution should be taken when reading/interpreting unfo rmatted reports. Name: ? BRYANNA BAL ? Accession #: ? [id number] ? : ? 1965 (Age: 40) ??F ? Collect Date: ? 07/27/2005 ? Location: ? [facility] ? Receive Date: ? 006 ? Provider: NEIL SESAY MD Copy to: SANDEEP PIÑA MD ? Final Pathologic Diagnosis: ? Breast, left, 8:00-9: 00, stereotactic vacuum-assisted 9-gauge needle core biopsy: 1. ?Fibrocystic changes including: ? - Columnar cell hyperplasia. - Sclerotic lobules. - Microcyst formation. ? 2. ?? Microcalcifications associated with colum sandrine cell hyperplasia. Document reviewed and electronically signed by: RICHIE MASON MD Report ??Date: 07/28/2005 14:21 By the signature above, the attending physician certif ies that he/she has personally conducted a gross and/or microscopic examin ation of the described specimens and rendered or confirmed the above diagnosi s. Specimen(s) Received: ? Stereotactic, vacuum- assisted, large core biopsy, left breast, 8-9:00, 9 gauge x6 cores Clinical History: ? Suspicious cluster of calcs; calcs in 3 pc tissue; clinical diagnosis code: breast calcs Gross Description: ? Received in formalin labeled Bissonnette are eight cores of pink-white and yellow fibrofatty tissue ranging fro m 0.5 x 0.4 x 0.3 cm up to 2.8 x 0.3 x 0.3 cm. ??Five of the cores are in a green cassette and are submitted entirely as (A1) and (A2). ??The remaining tissue is submitted ent irely as (A3). ??([facility] End of Report Specimen Performing Organization Address City/State/ZIP Code Phon e Number [facility] [address] [place] [address] SERVICES [facility] [address] [place] [address] documented in this encounter Visit Diagnoses Not on filedocumented in this encounter
--- OUTSIDE RECORDS SUMMARY | 2021-12-16 02:16 | XMS_ITS | Encounter Summary ---
:[address] [facility] Address [address] [place] [address] Care Team Providers Name Role Phone Unavailable Primary Care Provider Unavailable Encounter Details Date Type Department Care Team Description 05/03/2005 Results Only [facility] - Rafa Rosario MD Maple conversion [phone] [place] [address], [place] [phone] (Wo rk) Social History Tobacco Use Types Packs/Day Years Used Date Never Assessed Sex Assigned at Date Recorded Female 04/04/2021 10:49 EST documented as of this encounter Plan of Treatment Not on filedocumented as of this encounter Procedures Procedure Name Priority Date/Time Associated Diagnosis Comme nts CYTOPATHOLOGY Routine 05/03/2005 0:00 EST Results for this procedure are i n the results section . documented in this encounter Results CYTOPATHOLOGY (05/03/2005 0:00 EST) Pathology Report: CYTOPATHOLOGY REPORT [facility] Reports generated via electronic interface contain zara ginal data; however they are lacking the format of the original re port. Caution should be taken when reading/interpreting unfo rmatted reports. Name: ? SAVANNA BAL ? Accession #: ? [id number] : ? 1965 (Age: 40) ??F ?Collect Date: ? 03/0 03/2005 Location: ? [facility] ? Receive Date : ? 05/04/2005 Provider: ?SANDEEP ROSARIO MD Copy to: ?LILY PIÑA MD ? Specimen/Source: ? ThinPrep Pap Test, Cervix/Endocervix, processed on [employer] ThinPrep Imaging System, with manual evaluation Last Menstrual Period: ? 04/22/05 ? SPECIMEN ADEQUACY ? Satisfactory for Evaluation - transformation zone component present GENERAL CATEGORIZATION ? Negative for Intraepithelial Lesion or Malignan cy ? Document reviewed and electronically signed by: ? CIRA Sorto(ASCP) ? Report Date: ??05/09/2005 11:44 End of Report Specimen Performing Organization Address City/State/ZIP Code Phon e Number [facility] [address] [place] [address] SERVICES [facility] [address] [place] [address] documented in this encounter Visit Diagnoses Not on filedocumented in this encounter
--- OUTSIDE RECORDS SUMMARY | 2021-12-16 02:16 | XMS_ITS | Encounter Summary ---
:1965 Author Organization [facility] Address [address] [place] [address] Care Team Providers Name Role Phone Unavailable Primary Care Provider Unavailable Encounter Details Date Type Department Care Team Description 03/15/2004 Results Only [facility] - Rafa Rosario MD Maple conversion [phone] [place], [place] [address]ili, [place] [phone] (Wo rk) Social History Tobacco Use Types Packs/Day Years Used Date Never Assessed Sex Assigned at Date Recorded Female 04/04/2021 10:49 EST documented as of this encounter Plan of Treatment Not on filedocumented as of this encounter Procedures Procedure Name Priority Date/Time Associated Diagnosis Comme nts CYTOPATHOLOGY Routine 03/15/2004 0:00 EST Results for this procedure are i n the results section . documented in this encounter Results CYTOPATHOLOGY (03/15/2004 0:00 EST) Pathology Report: CYTOPATHOLOGY REPORT [facility] Reports generated via electronic interface contain zara ginal data; however they are lacking the format of the original re port. Caution should be taken when reading/interpreting unfo rmatted reports. Name: ? SAVANNA BAL ? Accession #: ? [id number] : ? 1965 (Age: 39) ??F ?Collect Date: ? 03/05 Location: ? [facility] ? Receive Date : ? 03/17/2004 Provider: ?SANDEEP ROSARIO MD Copy to: ? Specimen/Source: ?ThinPrep Pap Test, Cervix/ Endocervix Last Menstrual Period: ? 03/06/04 ? SPECIMEN ADEQUACY ? Satisfactory for Evaluation - transformation zone component absent GENERAL CATEGORIZATION ? Negative for Intraepithelial Lesion or Malignan cy ? Document reviewed and electronically signed by: ? CIRA [place](ASCP) ? Report Date: ??03/21/2004 07:27 End of Report Specimen Performing Organization Address City/State/ZIP Code Phon e Number [facility] 111 [place] [phone] SERVICES [facility] [address] [place] [address] documented in this encounter Visit Diagnoses Not on filedocumented in this encounter
--- OUTSIDE RECORDS SUMMARY | 2021-12-16 02:16 | XMS_ITS | Encounter Summary ---
:1965 Author Organization [facility] Address [address] [place] [address] Care Team Providers Name Role Phone Shy Matamoros MD Primary Care Provider Encounter Details Date Type Department Care Team Description 03/15/2004 Hospital Encounter [facility] - Yen Rosario MD Other [address] [place] [address] [address], [place] [address] (Wo rk) Social History Tobacco Use Types Packs/Day Years Used Date Never Assessed Sex Assigned at Date Recorded Female 04/04/2021 10:49 EST documented as of this encounter Plan of Treatment Not on filedocumented as of this encounter Visit Diagnoses Not on filedocumented in this encounter Care Teams Documentation Nurse Relationship Specialty Start Date End Date Shy Matamoros MD PCP - General 09/05/[address] [place] [address] [place] [address] documented as of this encounter
--- OUTSIDE RECORDS SUMMARY | 2021-12-16 02:16 | XMS_ITS | Encounter Summary ---
:1965 Author Organization [facility] Address [address] [place] [address] Care Team Providers Name Role Phone Shy Matamoros MD Primary Care Provider Encounter Details Date Type Department Care Team Description 07/02/2001 Hospital Encounter [facility] - Mery Guerrero MD [address] [address] [address], [place] [phone] (Wo rk) Social History Tobacco Use Types Packs/Day Years Used Date Never Assessed Sex Assigned at Date Recorded Female 04/04/2021 10:49 EST documented as of this encounter Plan of Treatment Not on filedocumented as of this encounter Procedures Procedure Name Priority Date/Time Associated Diagnosis Comme nts BACTERIAL CULTURE, Routine 07/02/2001 12:22 Resul ts for this URINE EDT procedure are i n the results section. PROFILE Routine 07/02/2001 12:21 Results for this EDT procedure are i n the results section. documented in this encounter Results BACTERIAL CULTURE, URINE (07/02/2001 12:22 EDT) Specimen Description Urine [facility] Result Less than 10,000 CFU/ml [facility] Mixed gram positive growth Report Status Final [facility] [id number] Specimen Performing Organization Address City/State/ZIP Code Phon e Number [facility] [address] [place] [address] SERVICES [facility] [address] [place] [address] (ABNORMAL) PROFILE (07/02/2001 12:21 EDT) ABO and Rh Type O POS [facility] Antibody Screen Neg [facility] WBC 7.05 4.0 - 12.4 [facility] K/cmm LAB RBC 3.46 (L) 3.86 - 5.04 [facility] M/cmm LAB Hemoglobin 12.1 11.6 - 15.2 [facility] gm/dl LAB HCT 34.4 (L) 34.9 - 44.4 % [facility] MCV 99 (H) 81 - 98 fl [facility] MCH 34.9 (H) 26.7 - 33.3 [facility] pg LAB MCHC 35.1 32.1 - 35.9 [facility] gm/dl LAB PLT 240 141 - 320 [facility] K/cmm LAB RDW-CV 12.5 11.7 - 14.6 % [facility] Hepatitis B Surface Neg [facility] Ag LAB Neutrophils 71.1 45.5 - 79.7 % [facility] Lymphocytes 19.2 15.0 - 46.8 % [facility] Monocytes 8.1 1.8 - 12.0 % [facility] Eosinophils 1.5 0.6 - 6.9 % [facility] Basophils 0.1 (L) 0.2 - 1.4 % [facility] ABS Neutrophils 5.02 2.20 - 8.85 [facility] K/cmm LAB ABS Lymphs 1.35 1.09 - 3.30 [facility] K/cm LAB ABS Monocytes 0.57 0.1 - 0.8 [facility] K/cm LAB ABS Eosinophils 0.10 0.03 - 0.61 [facility] K/cmm LAB ABS Basophils 0.00 (L) 0.01 - 0.11 [facility] K/cm LAB Type of Diff: Automated [facility] Syphilis Sero (RPR) NONREACT. NR Dils [facility] Rubella IgG Scr Antibody detected [facility] Specimen Performing Organization Address City/State/ZIP Code Phon e Number [facility] [address] [place] [address] SERVICES [facility] [address] [place] [address] documented in this encounter Visit Diagnoses Not on filedocumented in this encounter Care Teams Av Specialist Relationship Specialty Start Date End Date Shy Matamoros MD PCP - General 09/05/11 [address] [place] [address] documented as of this encounter
--- OUTSIDE RECORDS SUMMARY | 2021-12-16 02:16 | XMS_ITS | Encounter Summary ---
:[address] [facility] Address [address] [place] [address] Care Team Providers Name Role Phone Unavailable Primary Care Provider Unavailable Encounter Details Date Type Department Care Team Description 07/14/2005 Hospital Encounter [facility] - Yen Rosario MD [address] [address] [address], [place] [phone] (Wo rk) Social History Tobacco Use Types Packs/Day Years Used Date Never Assessed Sex Assigned at Date Recorded Female 04/04/2021 10:49 EST documented as of this encounter Discharge Disposition Disposition Code Departure Means Destination Auto Discharge documented in this encounter Plan of Treatment Not on filedocumented as of this encounter Procedures Procedure Name Priority Date/Time Associated Comments Diagnosis MARÍA EZbuildingEHS 07/14/2005 8:25 EDT R esults for this UNILATERAL ADDED procedure a re in VIEWS the results section. documented in this encounter Results MARÍA BRUCE [employer] DIGITAL UNILATERAL ADDED VIEWS (07/14/2005 8:25 EDT) Anatomical Region Laterality Modality Other Specimen Narrative [facility] - 09/19/2008 13 :54 EDT LEFT AV SPOT COMPRESSION ADDITIONAL VIEW MAMMOGR AM LEFT BREAST 07/14/05 COMPARISON: 06/30/05 FINDINGS: Clustered heterogenous calcifi cations are present at 8 to 9:00 o'clock. 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 ??The other two groups of calci fications seen previously at 12 and 2:00 o'clock have benign morpholo gy and are not viewed with concern. There are no suspicious masses. IMPRESSION: LEFT BREAST: BI-RADS CATEGOR Y 4c, suspicious. RECOMMENDATION: As discussed with the otoniel devine, she will be scheduled for stereotactic core biopsy of the clus tered calcifications in the lower inner aspect of the left breast. D 07/14/05 T 07/17/05 /xiomara Procedure Note Kelvin Serrano MD - 09/19/2008 LEFT AV SPOT COMPRESSION ADDITIONAL VIEW MAMMOGR AM LEFT BREAST 07/14/05 COMPARISON: 06/30/05 FINDINGS: Clustered heterogenous calcifi cations are present at 8 to 9:00 o'clock. 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 The other two groups of calcifi cations seen previously at 12 and 2:00 o'clock have benign morpholo gy and are not viewed with concern. There are no suspicious masses. IMPRESSION: LEFT BREAST: BI-RADS CATEGOR Y 4c, suspicious. RECOMMENDATION: As discussed with the otoniel devine, she will be scheduled for stereotactic core biopsy of the clus tered calcifications in the lower inner aspect of the left breast. D 07/14/05 T 07/17/05 /xiomara Performing Organization Address City/State/ZIP Code Phon e Number [facility] 111 [facility] [address] [facility] [address] [place], [place] [address] documented in this encounter Visit Diagnoses Not on filedocumented in this encounter
--- OUTSIDE RECORDS SUMMARY | 2021-12-16 02:16 | XMS_ITS | Encounter Summary ---
:1965 Author Organization [facility] Address [address] [place] [address] Care Team Providers Name Role Phone Unavailable Primary Care Provider Unavailable Encounter Details Date Type Department Care Team Description 09/17/1999 - Hospital Encounter [facility] Mery Rosario, 09/21/1999 Mother/Baby Unit MD 111 [facility] [address] [place] [address] Avenue [phone] [facility], [facility] [address] [place] [address] (Wo rk) Social History Tobacco [...] Associated Diagnosis Comme nts COMPLETE BLOOD Routine 09/19/1999 8:05 EDT Result s for this COUNT procedure are i n the results section. BLOOD GASES, CORD Routine 09/18/1999 9:10 EDT Res ults for this ARTERIAL procedure are i n the results section. HEMAGRAM & DIFF Routine 09/17/1999 8:43 EDT Resul ts for this procedure are i n the results section. documented in this encounter Results (ABNORMAL) HEMAGRAM (09/19/1999 8:05 EDT) Pathologist Sig nature WBC 10.42 4.0 - 12.4 K/cmm [facility] RBC 2.90 (L) 3.86 - 5.04 M/cmm [facility] Hemoglobin 10.6 (L) 11.6 - 15.2 gm/dl [facility] HCT 30.6 (L) 34.9 - 44.4 % [facility] MCV 105 (H) 81 - 98 fl [facility] MCH 36.4 (H) 26.7 - 33.3 pg [facility] MCHC 34.5 32.1 - 35.9 gm/dl [facility] PLT 184 141 - 320 K/cmm [facility] RDW-CV 13.9 11.7 - 14.6 % [facility] Specimen Performing Organization Address City/[facility]/ZIP Code Phon e Number [facility] [address] [place] [address] SERVICES [facility] [address] [place] [address] (ABNORMAL) BLOOD GASES, CORD (09/18/1999 9:10 EDT) Base Deficit 1.0 [facility] NOTES Air bubbles in [facility] sample/?result pCO2, arterial 70 (H) 35 - 45 mmHg [facility] pH, arterial 7.23 (L) 7.35 - 7.45 [facility] pO2, arterial 9 (L) 85 - 100 mmHg [facility] TCO2 31 mEq/L [facility] Specimen Performing Organization Address City/[facility]/ZIP Code Phon e Number [facility] [address] [place] [address] SERVICES [facility] [address] [place] [address] (ABNORMAL) HEMAGRAM & DIFF (09/17/1999 8:43 EDT) Pathologist Sig nature WBC 9.08 4.0 - 12.4 K/cmm [facility] RBC 3.38 (L) 3.86 - 5.04 M/cmm [facility] Hemoglobin 12.3 11.6 - 15.2 gm/dl [facility] HCT 35.5 34.9 - 44.4 % [facility] MCV 105 (H) 81 - 98 fl [facility] MCH 36.4 (H) 26.7 - 33.3 pg [facility] MCHC 34.6 32.1 - 35.9 gm/dl [facility] PLT 177 141 - 320 K/cmm [facility] RDW-CV 13.5 11.7 - 14.6 % [facility] Neutrophils 73.5 45.5 - 79.7 % [facility] Lymphocytes 14.5 (L) 15.0 - 46.8 % [facility] Monocytes 10.6 1.8 - 12.0 % [facility] Eosinophils 1.0 0.6 - 6.9 % [facility] Basophils 0.4 0.2 - 1.4 % [facility] ABS Neutrophils 6.68 2.20 - 8.85 K/cmm [facility] ABS Lymphs 1.32 1.09 - 3.30 K/cmm [facility] ABS Monocytes 0.96 (H) 0.1 - 0.8 K/cmm [facility] ABS Eosinophils 0.09 0.03 - 0.61 K/cmm [facility] ABS Basophils 0.03 0.01 - 0.11 K/cmm [facility] Type of Diff: Automated [facility] Specimen Performing Organization Address City/State/ZIP Code Phon e Number [facility] [address] [place] [address] SERVICES [facility] [address] [place] [address] documented in this encounter Visit Diagnoses Not on filedocumented in this encounter
--- OUTSIDE RECORDS SUMMARY | 2021-12-16 02:16 | XMS_ITS | Encounter Summary ---
:1965 Author Organization [facility] Address [address] [place] [id number] Care Team Providers Name Role Phone Unavailable Primary Care Provider Unavailable Encounter Details Date Type Department Care Team Description 07/27/2005 Hospital Encounter [facility] - Yen Rosario MD [address] [address] [address], [place] [phone] (Wo rk) Social History Tobacco Use Types Packs/Day Years Used Date Never Assessed Sex Assigned at Date Recorded Female 04/04/2021 10:49 EST documented as of this encounter Discharge Disposition Disposition Code Departure Means Destination Auto Discharge documented in this encounter Plan of Treatment Not on filedocumented as of this encounter Procedures Procedure Name Priority Date/Time Associated Comments Diagnosis MARÍA BRUCE DIAG DIGITAL 07/27/2005 11:37 Resu lts for this UNILATERAL ADDED EDT procedure a re in VIEWS the results section. MA BREAST SPECIMEN 07/27/2005 11:36 Resul ts for this EDT procedure are i n the results section. MA STEREOTACTIC BX 07/27/2005 11:36 Resul ts for this EDT procedure are i n the results section. documented in this encounter Results MARÍA BRUCE DIAG DIGITAL UNILATERAL ADDED VIEWS (07/27/2005 11:37 EDT) Anatomical Region Laterality Modality Other Specimen Narrative [facility] - 09/19/2008 12 :00 EDT DX UNI LEFT BREAST STEREOTACTIC LEFT BREAST BIOPSY, LEFT BR EAST SPECIMEN MAMMOGRAM, AND DIAGNOSTIC LEFT DIGITAL MAMMOGRAM ADDITI ONAL VIEW AT NO CHARGE: 07/27/05. INDICATION FOR STUDY: ??The patient has an indeterminate cluster of calcifications at 8:00 - 9:00 o'clock in the left breast. DESCRIPTION: The biopsy procedure and it s potential complications and alternatives were explained to the patie nt and written and verbal consent were obtained. ??Buffered 1% lid ocaine and 1% lidocaine with epinephrine were used for local anesthes ia. ??Six 9 gauge cores were obtained with a vacuum-assisted stereota ctic guided automatic core biopsy device. ??Specimen radiograph jason wed calcifications in three pieces of tissue. These were i nto a separate cassette, and all pieces of tissue were submitted to p athology. ??A titanium clip was placed at the biopsy site. ??The pos t clip mammogram showed the clip to be in satisfactory position with very few residual calcifications. ??After the patient got up from the stereotactic table, she became light headed. ??She wa s placed supine and recovered quickly. ??She left the department in ex cellent condition. A major account representative of the Radiology Departme nt will call the patient with the results of the biopsy and further re commendations. D: ??07/27/05 T: ??07/28/05 /[facility]. ??Addendum Begins ADDENDUM DICTATED BY DRS: MAISHA CALDERON AND DANTE: Pathologic and imaging findings were rev iewed by Dante Patterson and Rowdy. ??Stereotactic biopsy of a cluster of calcifications in the left breast at the 8 to 9:00 positio n reveals fibrocystic changes including columnar cell hyperplasia, scl erotic globules and microcyst formation. Microcalcifications are assoc iated with the columnar cell hyperplasia. These results are felt to b e benign concordant and a six month follow up mammogram is recommended . A member of the radiology department will call the patient with th john results. D 08/01/05 T 08/02/05 /[facility] ?? Addendum Ends I have personally reviewed the images an d the above interpretation and agree with the findings. Procedure Note Rowan Sesay MD / Keli Calderon M D / Leslie Reno MD - 09/19/2008 DX UNI LEFT BREAST STEREOTACTIC LEFT BREAST BIOPSY, LEFT BR EAST SPECIMEN MAMMOGRAM, AND DIAGNOSTIC LEFT DIGITAL MAMMOGRAM ADDITI ONAL VIEW AT NO CHARGE: 07/27/05. INDICATION FOR STUDY: The patient has an indeterminate cluster of calcifications at 8:00 - 9:00 o'clock in the left breast. DESCRIPTION: The biopsy procedure and it s potential complications and alternatives were explained to the patie nt and written and verbal consent were obtained. Buffered 1% lidoc berna and 1% lidocaine with epinephrine were used for local anesthes ia. Six 9 gauge cores were obtained with a vacuum-assisted stereota ctic guided automatic core biopsy device. Specimen radiograph showe d calcifications in three pieces of tissue. These were i nto a separate cassette, and all pieces of tissue were submitted to p athology. A titanium clip was placed at the biopsy site. The post clip mammogram showed the clip to be in satisfactory position with very few residual calcifications. After the patient got up from the stereotactic table, she became light headed. She was placed supine and recovered quickly. She left the department in exce llent condition. A major account representative of the Radiology Departme nt will call the patient with the results of the biopsy and further re commendations. /[facility]. Addendum Begins ADDENDUM DICTATED BY DRS: MAISHA CALDERON AND DANTE: Pathologic and imaging findings were rev iewed by Dante Patterson and Rowdy. Stereotactic biopsy of a cluster of calcifications in the left breast at the 8 to 9:00 positio n reveals fibrocystic changes including columnar cell hyperplasia, scl erotic globules and microcyst formation. Microcalcifications are assoc iated with the columnar cell hyperplasia. These results are felt to b e benign concordant and a six month follow up mammogram is recommended . A member of the radiology department will call the patient with th john results. D 08/01/05 T 08/02/05 /xiomara Addendum Ends I have personally reviewed the images an d the above interpretation and agree with the findings. Performing Organization Address City/State/ZIP Code Phon e Number [facility] [address] [facility] [address] [facility] [address] [place], [place] [address] MA BREAST SPECIMEN (07/27/2005 11:36 EDT) Anatomical Region Laterality Modality Other Specimen Narrative [facility] - 09/19/2008 12 :00 EDT STEREO BX LEFT BREAST STEREOTACTIC LEFT BREAST BIOPSY, LEFT BR EAST SPECIMEN MAMMOGRAM, AND DIAGNOSTIC LEFT DIGITAL MAMMOGRAM ADDITI ONAL VIEW AT NO CHARGE: 07/27/05. INDICATION FOR STUDY: ??The patient has an indeterminate cluster of calcifications at 8:00 - 9:00 o'clock in the left breast. DESCRIPTION: The biopsy procedure and it s potential complications and alternatives were explained to the patie nt and written and verbal consent were obtained. ??Buffered 1% lid ocaine and 1% lidocaine with epinephrine were used for local anesthes ia. ??Six 9 gauge cores were obtained with a vacuum-assisted stereota ctic guided automatic core biopsy device. ??Specimen radiograph jason wed calcifications in three pieces of tissue. These were i nto a separate cassette, and all pieces of tissue were submitted to p athology. ??A titanium clip was placed at the biopsy site. ??The pos t clip mammogram showed the clip to be in satisfactory position with very few residual calcifications. ??After the patient got up from the stereotactic table, she became light headed. ??She wa s placed supine and recovered quickly. ??She left the department in ex cellent condition. A major account representative of the Radiology Departme nt will call the patient with the results of the biopsy and further re commendations. D: ??07/27/05 T: ??07/28/05 /[facility]. ??Addendum Begins ADDENDUM DICTATED BY DRS: MAISHA CALDERON AND DANTE: Pathologic and imaging findings were rev iewed by Dante Patterson and Rowdy. ??Stereotactic biopsy of a cluster of calcifications in the left breast at the 8 to 9:00 positio n reveals fibrocystic changes including columnar cell hyperplasia, scl erotic globules and microcyst formation. Microcalcifications are assoc iated with the columnar cell hyperplasia. These results are felt to b e benign concordant and a six month follow up mammogram is recommended . A member of the radiology department will call the patient with th john results. D 08/01/05 T 08/02/05 /xi[facility]ara ?? Addendum Ends I have personally reviewed the images an d the above interpretation and agree with the findings. Procedure Note Rowan Sesay MD / Keli Calderon M D / Leslie Reno MD - 09/19/2008 STEREO BX LEFT BREAST STEREOTACTIC LEFT BREAST BIOPSY, LEFT BR EAST SPECIMEN MAMMOGRAM, AND DIAGNOSTIC LEFT DIGITAL MAMMOGRAM ADDITI ONAL VIEW AT NO CHARGE: 07/27/05. INDICATION FOR STUDY: The patient has an indeterminate cluster of calcifications at 8:00 - 9:00 o'clock in the left breast. DESCRIPTION: The biopsy procedure and it s potential complications and alternatives were explained to the patie nt and written and verbal consent were obtained. Buffered 1% lidoc berna and 1% lidocaine with epinephrine were used for local anesthes ia. Six 9 gauge cores were obtained with a vacuum-assisted stereota ctic guided automatic core biopsy device. Specimen radiograph showe d calcifications in three pieces of tissue. These were i nto a separate cassette, and all pieces of tissue were submitted to p athology. A titanium clip was placed at the biopsy site. The post clip mammogram showed the clip to be in satisfactory position with very few residual calcifications. After the patient got up from the stereotactic table, she became light headed. She was placed supine and recovered quickly. She left the department in exce llent condition. A major account representative of the Radiology Departme nt will call the patient with the results of the biopsy and further re commendations. /[facility]. Addendum Begins ADDENDUM DICTATED BY DRS: MAISHA CALDERON AND DANTE: Pathologic and imaging findings were rev iewed by Dante Patterson and Rowdy. Stereotactic biopsy of a cluster of calcifications in the left breast at the 8 to 9:00 positio n reveals fibrocystic changes including columnar cell hyperplasia, scl erotic globules and microcyst formation. Microcalcifications are assoc iated with the columnar cell hyperplasia. These results are felt to b e benign concordant and a six month follow up mammogram is recommended . A member of the radiology department will call the patient with th john results. D 08/01/05 T 08/02/05 / Addendum Ends I have personally reviewed the images an d the above interpretation and agree with the findings. Performing Organization Address City/State/ZIP Code Phon e Number [facility] [address] [place] [address], [place] [id number] [place] [address] [facility] [address] [place], [place] [address] MA STEREOTACTIC BX (07/27/2005 11:36 EDT) Anatomical Region Laterality Modality Other Specimen Narrative [facility] - 09/19/2008 12 :00 EDT STEREO BX LEFT BREAST STEREOTACTIC LEFT BREAST BIOPSY, LEFT BR EAST SPECIMEN MAMMOGRAM, AND DIAGNOSTIC LEFT DIGITAL MAMMOGRAM ADDITI ONAL VIEW AT NO CHARGE: 07/27/05. INDICATION FOR STUDY: ??The patient has an indeterminate cluster of calcifications at 8:00 - 9:00 o'clock in the left breast. DESCRIPTION: The biopsy procedure and it s potential complications and alternatives were explained to the patie nt and written and verbal consent were obtained. ??Buffered 1% lid ocaine and 1% lidocaine with epinephrine were used for local anesthes ia. ??Six 9 gauge cores were obtained with a vacuum-assisted stereota ctic guided automatic core biopsy device. ??Specimen radiograph jason wed calcifications in three pieces of tissue. These were i nto a separate cassette, and all pieces of tissue were submitted to p athology. ??A titanium clip was placed at the biopsy site. ??The pos t clip mammogram showed the clip to be in satisfactory position with very few residual calcifications. ??After the patient got up from the stereotactic table, she became light headed. ??She wa s placed supine and recovered quickly. ??She left the department in ex cellent condition. A major account representative of the Radiology Departme nt will call the patient with the results of the biopsy and further re commendations. D: ??07/27/05 T: ??07/28/05 /[facility]. ??Addendum Begins ADDENDUM DICTATED BY DRS: MAISHA CALDERON AND DANTE: Pathologic and imaging findings were rev iewed by Dante Patterson and Rowdy. ??Stereotactic biopsy of a cluster of calcifications in the left breast at the 8 to 9:00 positio n reveals fibrocystic changes including columnar cell hyperplasia, scl erotic globules and microcyst formation. Microcalcifications are assoc iated with the columnar cell hyperplasia. These results are felt to b e benign concordant and a six month follow up mammogram is recommended . A member of the radiology department will call the patient with th john results. D 08/01/05 T 08/02/05 /[facility] ?? Addendum Ends I have personally reviewed the images an d the above interpretation and agree with the findings. Procedure Note Rowan Sesay MD / Keli Calderon M D / Leslie Reno MD - 09/19/2008 STEREO BX LEFT BREAST STEREOTACTIC LEFT BREAST BIOPSY, LEFT BR EAST SPECIMEN MAMMOGRAM, AND DIAGNOSTIC LEFT DIGITAL MAMMOGRAM ADDITI ONAL VIEW AT NO CHARGE: 07/27/05. INDICATION FOR STUDY: The patient has an indeterminate cluster of calcifications at 8:00 - 9:00 o'clock in the left breast. DESCRIPTION: The biopsy procedure and it s potential complications and alternatives were explained to the patie nt and written and verbal consent were obtained. Buffered 1% lidoc berna and 1% lidocaine with epinephrine were used for local anesthes ia. Six 9 gauge cores were obtained with a vacuum-assisted stereota ctic guided automatic core biopsy device. Specimen radiograph showe d calcifications in three pieces of tissue. These were i nto a separate cassette, and all pieces of tissue were submitted to p athology. A titanium clip was placed at the biopsy site. The post clip mammogram showed the clip to be in satisfactory position with very few residual calcifications. After the patient got up from the stereotactic table, she became light headed. She was placed supine and recovered quickly. She left the department in exce llent condition. A major account representative of the Radiology Departme nt will call the patient with the results of the biopsy and further re commendations. /[facility]. Addendum Begins ADDENDUM DICTATED BY DRS: MAISHA CALDERON AND DANTE: Pathologic and imaging findings were rev iewed by Dante Patterson and Rowdy. Stereotactic biopsy of a cluster of calcifications in the left breast at the 8 to 9:00 positio n reveals fibrocystic changes including columnar cell hyperplasia, scl erotic globules and microcyst formation. Microcalcifications are assoc iated with the columnar cell hyperplasia. These results are felt to b e benign concordant and a six month follow up mammogram is recommended . A member of the radiology department will call the patient with th john results. D 08/01/05 T 08/02/05 /jl Addendum Ends I have personally reviewed the images an d the above interpretation and agree with the findings. Performing Organization Address City/State/ZIP Code Phon e Number [facility] [address] [facility], [facility] [address] [facility] [address] [place], [place] [address] documented in this encounter Visit Diagnoses Not on filedocumented in this encounter
--- OUTSIDE RECORDS SUMMARY | 2021-12-16 02:16 | XMS_ITS | Encounter Summary ---
:1965 Author Organization [facility] Address [address] [place] [address] Care Team Providers Name Role Phone Shy Matamoros MD Primary Care Provider Encounter Details Date Type Department Care Team Description 06/26/2001 Hospital Encounter [facility] - Yen Rosario MD [address] [facility], [address] [place] [address] Other Unknown, Provider, [address] [place] [address] Social History Tobacco Use Types Packs/Day Years Used Date Never Assessed Sex Assigned at Date Recorded Female 04/04/2021 10:49 EST documented as of this encounter Plan of Treatment Not on filedocumented as of this encounter Procedures Procedure Name Priority Date/Time Associated Comments Diagnosis N.GONORRHOEAE PROBE Routine 06/26/2001 12:45 Resu lts for this EDT procedure are i n the results section. CHLAMYDIA TRACHOMATIS Routine 06/26/2001 12:45 Re sults for this PROBE EDT procedure are i n the results section. CYTOPATHOLOGY Routine 06/26/2001 0:00 Results for this EDT procedure are i n the results section. documented in this encounter Results N.GONORRHOEAE PROBE (06/26/2001 12:45 EDT) Specimen Cervix [facility] Description LAB Result No Neisseria [facility] gonorrhoeae DNA LAB detected by slate picker mediated amplification. Report Status Final [facility] [id number] LAB Specimen Performing Organization Address City/[facility]/ZIP Code Phon e Number [facility] [address] [place] [address] SERVICES [facility] [address] [place] [id number] CHLAMYDIA TRACHOMATIS PROBE (06/26/2001 12:45 EDT) Specimen Cervix [facility] Description LAB Result No Chlamydia [facility] trachomatis DNA LAB detected by slate picker mediated amplification. Report Status Final [facility] [id number] LAB Specimen Performing Organization Address City/[facility] Code Phon e Number [facility] [address] [place] [address] SERVICES [facility] [address] [place] [address] CYTOPATHOLOGY (06/26/2001 0:00 EDT) Pathology Report: CYTOPATHOLOGY REPORT [facility] Reports generated via electronic interface contain zara ginal data; however they are lacking the format of the original re port. Caution should be taken when reading/interpreting unfo rmatted reports. Name: ? KAMERONSIMRANJORDANSAVANNA Suero Caryl ? Accession #: ? [id number] : ? 1965 (Age: 36) ??F ?Collect Date: ? 06/04 Location: ? [facility] ? Receive Date : ? 06/28/2001 Provider: ?SANDEEP ROSARIO MD Copy to: ? Specimen/Source: ?ThinPrep Pap Test, Cervix/ Endocervix Last Menstrual Period: ? 05/02/01 ? SPECIMEN ADEQUACY ? Satisfactory for Evaluation - transformation zone component present GENERAL CATEGORIZATION ? Negative for Intraepithelial Lesion or Malignan cy ? Document reviewed and electronically signed by: ? Kathy Bateman, ??SCT(ASCP) ? Report Date: ??07/04/2001 08:53 End of Report Specimen Performing Organization Address City/State/[facility] Code Phon e Number [facility] [address] [place] [address] SERVICES [facility] [address] [place] [address] documented in this encounter Visit Diagnoses Not on filedocumented in this encounter Care Teams Partition Setter Relationship Specialty Start Date End Date Shy Matamoros MD PCP - General 09/05/[address] [place] [address] documented as of this encounter
[2021-12-16 08:49] LABS: Calculated LDL 82 mg/dL (<100); Cholesterol 182 mg/dL (<200); HDL Cholesterol 81 mg/dL (40-60); Triglyceride 99 mg/dL (<150)
== END 2021-12-16 02:14 | disposition home or self-care (01) ==
LOC: LBO 02:14
PROVIDERS: PCP Internal Medicine; Visit Provider Internal Medicine
DX: R73.01 Impaired fasting glucose (principal); Z00.00 Encounter for general adult medical examination without abnormal findings
CPT/HCPCS: 36415; 80061; 83036

== ENCOUNTER 2022-11-27 10:39 | Outpatient (CLI) | payer OTHER, SELFPAY ==
[2022-11-27 10:37] LABS: Calculated LDL 84 mg/dL (<100); Cholesterol 190 mg/dL (<200); HDL Cholesterol 92 mg/dL (40-60); Triglyceride 72 mg/dL (<150)
== END 2022-11-27 10:40 | disposition home or self-care (01) ==
LOC: LBO 10:40
PROVIDERS: PCP Internal Medicine; Visit Provider Internal Medicine
DX: Z00.00 Encounter for general adult medical examination without abnormal findings (principal); R73.03 Prediabetes; Z13.220 Encounter for screening for lipoid disorders
CPT/HCPCS: 36415; 80061; 83036

== ENCOUNTER 2023-04-09 05:28 | Outpatient (CLI) | payer OTHER, SELFPAY ==
[2023-04-09 13:13] LABS: HCT 42.4 % (36.0-46.0); MCH 32.9 pg (27.0-33.0); MCV 100 fL (80-95); MPV 10.6 fL (8.0-11.0); Platelet Count 190 10^3/uL (130-400); RBC 4.25 10^6/uL (3.93-5.22); RDW 13.3 % (11.7-14.6); WBC 5.22 10^3/uL (4.4-10.8)
[2023-04-09 14:08] LABS: ALT 35 U/L (14-59); AST 21 U/L (15-37); Albumin 3.7 g/dL (3.4-5.0); Alkaline Phosphatase 117 U/L (46-116); Anion Gap 9.3 mmol/L (3-11); BUN 25 mg/dL (7-18); Bilirubin, Total 1.1 mg/dL (0.2-1.0); CO2 26.7 mmol/L (21.0-32.0); CREATININE 0.7 mg/dL (0.55-1.02); Calcium 9.6 mg/dL (8.5-10.1); Chloride 104 mmol/L (98-107); Estimated GFR 99.57 (mL/min/1.73m2); Glucose 137 mg/dL (74-106); Potassium 3.4 mmol/L (3.5-5.1); Sodium 140 mmol/L (136-145); TSH 2.42 uIU/mL (0.36-3.74); Total Protein 7.7 g/dL (6.4-8.2)
== END 2023-04-09 05:29 | disposition home or self-care (01) ==
LOC: LBO 05:28
PROVIDERS: PCP Internal Medicine; Visit Provider Obstetrics & Gynecology
DX: R53.83 Other fatigue (principal)
CPT/HCPCS: 36415; 80053; 85027; 84443

== ENCOUNTER 2023-11-30 02:21 | Outpatient (CLI) | payer OTHER, SELFPAY ==
[2023-11-30 10:47] LABS: Abs Immature Grans 0.02 10^3/uL (0.0-0.06); Absolute Basophil Count 0.02 10^3/uL (0.0-0.2); Absolute Eosinophil Count 0.07 10^3/uL (0.0-0.7); Absolute Lymphocyte Count 1.62 10^3/uL (1.2-3.4); Absolute Monocyte Count 0.42 10^3/uL (0.1-0.8); Absolute Neutrophil Count 2.08 10^3/uL (1.2-6.7); Basophils % 0.5 %; Eosinophils % 1.7 %; HGB 14.3 g/dL (11.2-15.7); Immature Grans % 0.5 %; Lymphocytes % 38.3 %; MCH 33.6 pg (27.0-33.0); MCHC 33.3 % (32.0-36.0); MCV 101 fL (80-95); MPV 10.3 fL (8.0-11.0); Monocytes % 9.9 %; Neutrophils % 49.1 %; Platelet Count 191 10^3/uL (130-400); RBC 4.25 10^6/uL (3.93-5.22); RDW 13.4 % (11.7-14.6); RDW-SD 50.4 fL; WBC 4.23 10^3/uL (4.4-10.8)
[2023-11-30 11:03] LABS: Hemoglobin A1C 5.5 % (<5.7)
[2023-11-30 11:28] LABS: ALT 33 U/L (14-59); AST 22 U/L (15-37); Albumin 3.8 g/dL (3.4-5.0); Alkaline Phosphatase 127 U/L (46-116); BUN 24 mg/dL (7-18); CREATININE 0.7 mg/dL (0.55-1.02); Calcium 9.3 mg/dL (8.5-10.1); Calculated LDL 95 mg/dL (<100); Chloride 106 mmol/L (98-107); Cholesterol 198 mg/dL (<200); Estimated GFR 99.57 (mL/min/1.73m2); Glucose 100 mg/dL (74-106); HDL Cholesterol 90 mg/dL (40-60); Potassium 4.1 mmol/L (3.5-5.1); Sodium 140 mmol/L (136-145); Total Protein 7.7 g/dL (6.4-8.2); Triglyceride 69 mg/dL (<150)
== END 2023-11-30 02:22 | disposition home or self-care (01) ==
PROVIDERS: PCP Internal Medicine; Visit Provider Internal Medicine
DX: D64.9 Anemia, unspecified (principal); R73.01 Impaired fasting glucose; E78.5 Hyperlipidemia, unspecified
CPT/HCPCS: 36415; 80053; 80061; 83036; 85025

== ENCOUNTER 2024-12-23 00:06 | Outpatient (CLI) | payer OTHER, SELFPAY ==
[2024-12-23 08:59] LABS: HCT 44.2 % (36.0-46.0); HGB 14.5 g/dL (11.2-15.7); MCH 33.6 pg (27.0-33.0); MCHC 32.8 % (32.0-36.0); MCV 102 fL (80-95); MPV 10.4 fL (8.0-11.0); Platelet Count 201 10^3/uL (130-400); RBC 4.32 10^6/uL (3.93-5.22); RDW 13.2 % (11.7-14.6); RDW-SD 50.8 fL; WBC 4.26 10^3/uL (4.4-10.8)
[2024-12-23 09:10] LABS: Hemoglobin A1C 5.9 % (<5.7)
[2024-12-23 09:14] LABS: ALT 36 U/L (14-59); AST 23 U/L (15-37); Albumin 3.9 g/dL (3.4-5.0); Alkaline Phosphatase 145 U/L (46-116); Anion Gap 5.9 mmol/L (3-11); BUN 21 mg/dL (7-18); Bilirubin, Total 0.9 mg/dL (0.2-1.0); CO2 29.1 mmol/L (21.0-32.0); Calcium 9.3 mg/dL (8.5-10.1); Chloride 105 mmol/L (98-107); Estimated GFR 102.69 (mL/min/1.73m2); Glucose 114 mg/dL (74-106); Potassium 4.4 mmol/L (3.5-5.1); Sodium 140 mmol/L (136-145); Total Protein 7.8 g/dL (6.4-8.2)
== END 2024-12-23 00:07 | disposition home or self-care (01) ==
PROVIDERS: PCP Internal Medicine; Visit Provider Internal Medicine
DX: Z00.00 Encounter for general adult medical examination without abnormal findings (principal)
CPT/HCPCS: 36415; 80053; 85027; 83036